=== PATIENT | male | born 1995 | race Caucasian/White ===

== ENCOUNTER 2017-09-14 20:34 | Inpatient (IN) | payer BC, OTHER ==
[~2017-09-14] VITALS: Ht 170.2 cm; Wt 73.0 kg
[2017-09-14 23:15] VITALS: BP 119/60
[2017-09-14] MEDS ORDERED: ONDANSETRON 4 MG/2 ML VIAL IM PRN (23:15)
[2017-09-14] MEDS ORDERED: LOPERAMIDE HCL 2 MG CAPSULE PO PRN ×2 (23:15)
[2017-09-14] MEDS ORDERED: diphenhydrAMINE 50 MG CAPSULE PO PRN (23:15)
[2017-09-14] MEDS ORDERED: MAG HYDROX/AL HYDROX/SIMETH 30 ML LIQUID UDC PO PRN (23:15)
[2017-09-14] MEDS ORDERED: LORAZEPAM 2 MG/1 ML VIAL IM PRN (23:15)
[2017-09-14] MEDS ORDERED: MIRALAX 17 GM POWD.PACK PO PRN (23:15)
[2017-09-14] MEDS ORDERED: IBUPROFEN 600 MG TABLET PO PRN (23:15)
[2017-09-14] MEDS ORDERED: CLONIDINE HCL 0.1 MG TABLET PO PRN (23:15)
[2017-09-14] MEDS ORDERED: ACETAMINOPHEN 325 MG TABLET PO PRN (23:15)
[2017-09-14] MEDS ORDERED: DICYCLOMINE HCL 20 MG TABLET PO PRN (23:15)
[2017-09-14] MEDS ORDERED: LORAZEPAM 1 MG TABLET PO PRN ×2 (23:15)
--- NOTE | 2017-09-14 23:15 | NUR ---
Pre-Admission Pre-admission assessment performed in the intake department of [facility]. Pt is A&O x4 and ambulatory with a steady gait. He does not appear intoxicated and answers all questions appropriately. Vital signs are B/P 119/60, HR 87, RR 18, O2 sat 97%, T 98.0, pain 0/10. He reports that he has been smoking heroin and taking Xanax. Last used heroin this morning at 0400. Last took Xanax 2 days ago. Pt is stable and [facility].
[2017-09-15] MEDS ORDERED: LORAZEPAM 1 MG TABLET PO ONE ×2 (01:15→15:15)
--- NOTE | 2017-09-15 01:15 | NUR ---
ADMISSION Pt is a 22 yo male who arrived on the [facility] unit at 2338 on 09/14/17 for medically supervised detox. He is A&O x4 and ambulatory with a steady gait. Body check performed by CERTIFIED PERSONAL FINANCE COUNSELOR and skin check performed by nurse. Pt was oriented to the unit and shown to his room. He reports NKA, chooses to be full code status, and is on a regular diet. Vitals in intake were Pt is 5'7" and weighs 161lb. B/P 119/60, HR 87, RR 18, O2 sat 97%, T 98.0, pain 0/10. He reports PMH of seizure disorder since age 8. Pt states "sometimes I have one seizure per year and sometimes I have 7 seizures per year. Last seizure was 2 weeks ago and he was taken to [facility] in [place]. He takes Gabapentin or Depakote for seizures. He also reports social anxiety and he wears contact lenses. Lung sounds clear, PERRLA, brisk capillary refill, bowel sounds present, skin is warm and intact. Last BM was 09/14/17. History of Use 1) Heroin oral inhalation 1.5 grams per day for 1.5 months. Last used 1 gram 09/14/17 at 0400. He has used heroin for 5 years. 2) Xanax 6mg per day for the past 3 weeks. Last used 2mg 09/12/17. He has used Xanax for 2 years. Treatment History [facility] 06/2017 [facility] 05/2017 for 30 days [facility] in 2014 for 30 days Pt smokes 10 cigarettes per day. He decided to come to treatment today because "I can't get sober". His longest period of sobriety was 2 months from 05/21-07/22. He currently lives at home with his girlfriend. Symptoms when he doesn't use include "nausea, anxiety, diarrhea, restlessness, loss of appetite, light headed, vomiting". His primary care physician is Apoorva Manuel in [facility]. COWS 6 and CIWA 5 on admission. MD aware of patients admission with orders received. Pt was educated regarding use of the call light and all questions answered. Fall and seizure precautions in place. Bed is down with call light in reach.
[2017-09-15 01:22] VITALS: BP 105/66
[2017-09-15] MEDS: ONDANSETRON ODT 4 MG TAB.RAPDIS SL PRN ×2 (01:26→04:52)
[2017-09-15] MEDS: METHOCARBAMOL 750 MG TABLET PO PRN ×2 (01:26→21:24)
--- NOTE | 2017-09-15 01:27 | NUR ---
Onetime Ativan, PRN Robaxin, and PRN Zofran Pt reports moderate anxiety, body aches, and nausea. COWS 7 and CIWA 8. Orders received and carried out for one time Ativan. PRN Robaxin and PRN Zofran administered.
[2017-09-15] MEDS ORDERED: ONDANSETRON ODT 4 MG TAB.RAPDIS ONE (01:28)
[2017-09-15] MEDS ORDERED: METHOCARBAMOL 750 MG TABLET ONE (01:28)
[2017-09-15] MEDS ORDERED: LORAZEPAM 1 MG TABLET ONE (01:28)
[2017-09-15 01:52] LABS: *AMPHETAMINE, URINE NEGATIVE (NEGATIVE); *BARBITURATE, URINE NEGATIVE (NEGATIVE); *CANNABINOID, URINE NEGATIVE (NEGATIVE); *COCCAINE, URINE POSITIVE (NEGATIVE); *OPIATE, URINE POSITIVE (NEGATIVE); *PHENCYCLIDINE SCREEN,URINE NEGATIVE (NEGATIVE)
--- NOTE | 2017-09-15 02:26 | NUR ---
Onetime Ativan, PRN Robaxin, and PRN Zofran reassessment Onetime Ativan somewhat effective. Pt reports continued mild anxiety. Body aches and nausea are relieved. COWS 3 and CIWA 3.
--- NOTE | 2017-09-15 02:29 | NUR ---
PRN Benadryl Pt reports continued mild anxiety and inability to sleep. PRN Benadryl administered.
[2017-09-15] MEDS ORDERED: diphenhydrAMINE 50 MG CAPSULE ONE (02:35)
--- NOTE | 2017-09-15 03:29 | NUR ---
PRN Benadryl reassessment PRN Benadryl effective. Pt is lying in bed resting with eyes closed. Respirations even and unlabored. Safety measures in place.
[2017-09-15 04:00] VITALS: BP 100/59
[2017-09-15] MEDS ORDERED: TRAZ-147 PO (04:35)
[2017-09-15] MEDS ORDERED: ONDA4TAB11 PO (04:35)
[2017-09-15] MEDS ORDERED: HYDR-3026 PO (04:35)
[2017-09-15] MEDS ORDERED: DIVA500T54 PO (04:35)
--- NOTE | 2017-09-15 07:20 | NUR ---
END OF SHIFT Report provided to day shift nurse. Pt is lying in bed resting. He is a 22 yo male admitted [facility] on 09/14 at 2336 for opiate and BZD dependence. He is A&O and ambulatory. PMH of seizure DO and social anxiety. Subutex and Ativan tapers to start today. One time Ativan administered. PRN Robaxin, Zofran, and Benadryl also administered. Last COWS 3 and CIWA 3 after medications. He drank 796mL and slept for 4 hours. Fall and seizure precautions in place. Bed is down with call light in reach.
--- NOTE | 2017-09-15 07:30 | NUR ---
START OF SHIFT Pt is a 22 yr old male, A&Ox4. Pt was admitted on 09/14/17 for Opiate/Benzo dependence and is to start on 5 day Ativan and 5 day Subutex taper as ordered. Received report from night monitor nurse. Pt received Zofran PRN, Robaxin PRN, Benadryl PRN and Ativan 2mg x1 during the night monitor. Medication was effective. Pt slept for 4 hrs. Last COWS score was 3, CIWA score was 3 at 0226. Pt is full code regular diet and NKA. Pt has Hx of seizures. Pt is on fall and seizure precautions. Pt is currently in bed resting with respirations even and unlabored. No acute distress noted. Safety precautions observed. Call light is within reach. Will continue to monitor.
[2017-09-15 08:00] VITALS: BP 99/57
[2017-09-15] MEDS ORDERED: TUBERCULIN,PURIF.PROT.DERIV. 5 TU/0.1 ML TEST ID ONE (09:00)
[2017-09-15] MEDS: LORAZEPAM 1 MG TABLET PO SCH ×4 (09:56→21:23)
[2017-09-15] MEDS: BUPRENORPHINE HCL 2 MG TAB.SUBL SL SCH ×4 (09:56→21:26)
[2017-09-15 12:00] VITALS: BP 122/80
[2017-09-15] MEDS: GABAPENTIN 300 MG CAPSULE PO SCH ×2 (14:20→21:24)
[2017-09-15] MEDS ORDERED: BUPRENORPHINE HCL 2 MG TAB.SUBL SL ONE (15:15)
--- NOTE | 2017-09-15 15:18 | NUR ---
MEDICATION ADMINISTRATION Pt c/o s/s of w/d. COWS score was [address] Dubon was made aware with new order for Ativan 1mg PO x1 and Subutex 2mg SL x1 at this time. Medication was administered. Pt was encouraged to attend group. Will endorse to RN to continue to monitor.
[2017-09-15 17:49] VITALS: BP 125/79
--- NOTE | 2017-09-15 19:20 | NUR ---
Patient refused as needed motrin for pain. Handoff report to night nurse .
--- NOTE | 2017-09-15 19:55 | NUR ---
START OF SHIFT Received report from day shift nurse. Pt is lying in bed resting. He is a 22 yo male admitted to [facility] on 09/14 for opiate and BZD dependence. He is A&O and ambulatory. NKA, full code status, and on a regular diet. PMH of seizure disorder since age 8 and social anxiety. On admission he reported using heroin 1.5 grams per day and Xanax 6mg per day. 5 day Subutex and 5 day Ativan taper started today. Pt reports anxiety, muscle aches, chills, and is observed with mild tremors. Tapers due tonight. Fall and seizure precautions in place. Bed is down with call light in reach.
[2017-09-15 20:00] VITALS: BP 133/81
[2017-09-15] MEDS: TRAZODONE 100 MG TABLET PO SCH (21:23)
--- NOTE | 2017-09-15 21:25 | NUR ---
PRN Robaxin Pt reports generalized body aches. PRN Robaxin administered.
--- NOTE | 2017-09-15 22:25 | NUR ---
PRN Robaxin reassessment PRN Robaxin effective. Pt is lying in bed and reports muscle aches are relieved. Safety measures in place.
[2017-09-16] VITALS: BP 103/55
--- NOTE | 2017-09-16 | NUR ---
0000 COWS and CIWA deferred COWS and CIWA ordered Q4HWA. Pt is lying in bed resting with eyes closed. Respirations even and unlabored. Vital signs obtained. Safety measures in place.
[2017-09-16 04:00] VITALS: BP 102/57
--- NOTE | 2017-09-16 04:00 | NUR ---
0400 COWS and CIWA deferred COWS and CIWA ordered Q4HWA. Pt is lying in bed resting with eyes closed. Respirations even and unlabored. Vital signs obtained. Safety measures in place.
--- NOTE | 2017-09-16 07:25 | NUR ---
END OF SHIFT Report provided to day shift nurse. Pt is lying in bed resting. He is a 22 yo male admitted to [facility] on 09/14 for opiate and BZD dependence. He is A&O and ambulatory. NKA, full code, regular diet. PMH of seizure disorder since age 8 and social anxiety. On admission he reported using heroin 1.5 grams per day and Xanax 6mg per day. 5 day Subutex and 5 day Ativan taper started today. He is compliant with treatment. PRN Robaxin administered. Last COWS 6 and CIWA 6 before night meds. He drank 500mL and slept for 9 hours. Fall and seizure precautions in place. Bed is down with call light in reach.
--- NOTE | 2017-09-16 07:30 | NUR ---
START OF SHIFT Pt is a 22 yr old male, AA&Ox4. Pt was admitted on 09/14/17 for Opiate/Benzo dependence and is to start on 5 day Ativan and 5 day Subutex taper as ordered. Received report from night baker nurse. Pt received Robaxin PRN during the night baker. Medication was effective. Pt slept for 9 hrs. Last COWS score was 6, CIWA score was 6 at 1999. Pt is full code regular diet and NKA. Pt has Hx of seizures. Pt is on fall and seizure precautions. Pt is currently in bed resting with respirations even and unlabored. No acute distress noted. Safety precautions observed. Call light is within reach. Will continue to monitor.
[2017-09-16 08:00] VITALS: BP 96/59
[2017-09-16] MEDS: GABAPENTIN 300 MG CAPSULE PO SCH ×3 (09:15→20:17)
[2017-09-16] MEDS: LORAZEPAM 1 MG TABLET PO SCH ×3 (09:15→20:16)
[2017-09-16] MEDS: BUPRENORPHINE HCL 2 MG TAB.SUBL SL SCH ×3 (09:17→20:18)
--- NOTE | 2017-09-16 10:54 | NUR ---
Therapist prompted client about group times. Client stated he may go to groups today, depending on how he feels.
[2017-09-16 12:00] VITALS: BP 121/73
[2017-09-16] MEDS ORDERED: KETOROLAC TROMETHAMINE 30 MG INJ IM PRN (12:00)
[2017-09-16] MEDS ORDERED: BUPRENORPHINE HCL 2 MG TAB.SUBL SL ONE (12:00)
--- NOTE | 2017-09-16 12:27 | NUR ---
MEDICATION ADMINISTRATION Pt c/o s/s of w/d. COWS score was [address] Dubon was made aware with new order for Subutex 2mg SL x1 at this time. Medication was administered. Pt was encouraged to attend group. Pt became agitated and was requested for Ativan for anxiety. Clonidine 0.1mg PO PRN was offered but pt refused. Will f/u with .
[2017-09-16] MEDS ORDERED: HYDROXYZINE PAMOATE 25 MG CAPSULE PO PRN (12:45)
[2017-09-16] MEDS: LORAZEPAM 1 MG TABLET PO ONE ×2 (13:40→13:42)
--- NOTE | 2017-09-16 13:42 | NUR ---
NSG NOTES Pt c/o anxiety. Dr. Dubon was on the unit and place one time order for Ativan 2mg PO x1. Medication was administered and alvin well. Will continue to monitor.
[2017-09-16] MEDS: BACLOFEN 10 MG TABLET PO SCH ×2 (15:04→20:16)
[2017-09-16 16:00] VITALS: BP 118/73
--- NOTE | 2017-09-16 19:00 | NUR ---
END OF SHIFT Pt is a 22 yr old male, AA&Ox4. Pt was admitted on 09/14/17 for Opiate/Benzo dependence and is on 5 day Ativan and 5 day Subutex taper as ordered. Pt has been noted with agitation due to wanting extra dose of Ativan and Subutex. Pt has been spoken to by administration over behavior. Pt was able to verbalize understanding of disease process and plan of care. Pt received Ativan 2mg PO x1 and Subutex 2mg SL x1 during the day. Medication was effective. Last COWS score was 3, CIWA score was 3 at 1600. Pt was encouraged to attend group. Pt is full code regular diet and NKA. Pt has Hx of seizures d/t w/d. Pt is on fall and seizure precautions. Pt is currently in bed resting with respirations even and unlabored. No acute distress noted. Safety precautions observed. Call light is within reach.
--- NOTE | 2017-09-16 19:50 | NUR ---
START OF SHIFT Received report from day shift nurse. Pt is lying in bed resting. He is a 22 yo male admitted to the [facility] on 09/14 for opiate and BZD dependence. He is A&O and ambulatory. NKA, full code status, and on a regular diet. PMH of seizure disorder since age 8 and social anxiety. On admission he reported using heroin 1.5 grams per day and Xanax 6mg per day. 5 day Subutex and 5 day Ativan taper started today. Pt reports anxiety, generalized body aches /, and has mild hand tremors. Tapers due tonight. Fall and seizure precautions in place. Bed is down with call light in reach.
[2017-09-16 20:00] VITALS: BP 124/83
[2017-09-16] MEDS: CLONIDINE HCL 0.1 MG TABLET PO SCH (20:17)
[2017-09-17] VITALS: BP 107/57
[2017-09-17] MEDS: TRAZODONE 100 MG TABLET PO SCH ×3 (00:16→20:34)
--- NOTE | 2017-09-17 04:00 | NUR ---
0400 Vitals refused/COWS and CIWA deferred Pt refused to be woken for 0400 vitals. He is lying in bed resting with eyes closed. Respirations even and unlabored. COWS and CIWA ordered Q4HWA. Safety measures in place.
--- NOTE | 2017-09-17 07:15 | NUR ---
END OF SHIFT Report provided to day shift nurse. Pt is lying in bed resting. He is a 22 yo male admitted to [facility] on 09/14 for opiate and BZD dependence. He is A&O and ambulatory. NKA, full code status, and on a regular diet. PMH of seizure disorder since age 8 and social anxiety. On admission he reported using heroin 1.5 grams per day and Xanax 6mg per day. 5 day Subutex and 5 day Ativan tapers started 09/15. No PRN medications administered. Last COWS 3 and CIWA 3. He drank 500mL and slept for 8 hours. Tapers due tonight. Fall and seizure precautions in place. Bed is down with call light in reach.
--- NOTE | 2017-09-17 07:30 | NUR ---
START OF SHIFT Pt is a 22 yr old male, AA&Ox4. Pt was admitted on 09/14/17 for Opiate/Benzo dependence and is to start on 5 day Ativan and 5 day Subutex taper as ordered. Received report from night order selector nurse. No PRN's were given during the night. Pt slept for 8 hrs. Last COWS score was 3, CIWA score was 3 at 0000. Pt is full code regular diet and NKA. Pt is on fall and seizure precautions. Pt is currently in bed resting with respirations even and unlabored. Pt is refusing to have blood drawn for lab orders. Pt was encouraged and educated in the importance of labs, pt stated for door to door salesman to come back in the afternoon while awake. Will continue to f/u. Safety precautions observed. Call light is within reach. Will continue to monitor.
[2017-09-17 08:00] VITALS: BP 98/62
[2017-09-17] MEDS: CLONIDINE HCL 0.1 MG TABLET PO SCH ×3 (09:00→20:27)
[2017-09-17] MEDS ORDERED: BUPRENORPHINE HCL 2 MG TAB.SUBL SL SCH ×2 (09:00→15:00)
[2017-09-17] MEDS ORDERED: LORAZEPAM 1 MG TABLET PO SCH ×3 (09:00→21:00)
[2017-09-17] MEDS: GABAPENTIN 300 MG CAPSULE PO SCH ×3 (09:55→20:28)
[2017-09-17] MEDS: BACLOFEN 10 MG TABLET PO SCH (09:55)
--- NOTE | 2017-09-17 09:58 | NUR ---
MEDICATION REFUSED Pt refused to take Clonidine 0.1mg PO as scheduled at 0900. Pt was educated on medication regimen. Pt is able to verbalize understanding but continued to refuse.
--- NOTE | 2017-09-17 10:30 | NUR ---
MD COMMUNICATION Reported to Dr. Dubon in regards to pt refusing morning labs. Per , NNO at this time.
--- NOTE | 2017-09-17 11:22 | NUR ---
PRN GIVEN Pt is c/o generalized body aches 06/14 and increase anxiety. Toradol 30mg IM PRN and Clonidine 0.1mg PO PRN was given as ordered. Pt was encouraged to attend group sessions and was educated on coping mechanisms for anxiety. Encouraged increase fluid intake. Will continue to monitor.
[2017-09-17 12:00] VITALS: BP 127/79
[2017-09-17] MEDS ORDERED: HYDROXYZINE PAMOATE 25 MG CAPSULE PO PRN (12:15)
--- NOTE | 2017-09-17 12:22 | NUR ---
PRN RE-ASSESSMENT Toradol PRN and Clonidine PRN was effective. Pt denies any pain at this time. Encouraged increase fluid intake. Will continue to monitor.
[2017-09-17] MEDS: BUPRENORPHINE HCL 2 MG TAB.SUBL SL SCH ×3 (13:08→20:28)
[2017-09-17] MEDS ORDERED: GABAPENTIN 300 MG CAPSULE PO ONE (14:15)
[2017-09-17] MEDS: ONDANSETRON ODT 4 MG TAB.RAPDIS SL PRN (14:47)
--- NOTE | 2017-09-17 14:47 | NUR ---
PRN GIVEN Pt c/o x2 emesis. Zofran 4mg SL PRN was given as ordered. Medication alvin well. Will continue to monitor.
[2017-09-17] MEDS: BACLOFEN 20 MG TABLET PO SCH ×2 (14:48→20:27)
--- NOTE | 2017-09-17 15:47 | NUR ---
PRN RE-ASSESSMENT Zofran PRN was effective. Pt denies any n/v. Encouraged increase fluid intake. Will continue to monitor.
[2017-09-17 16:00] VITALS: BP 119/81
--- NOTE | 2017-09-17 19:10 | NUR ---
END OF SHIFT Pt is a 22 yr old male, AA&Ox4. Pt was admitted on 09/14/17 for Opiate/Benzo dependence and is on 5 day Ativan and 5 day Subutex taper as ordered. Pt has been encouraged to attend group. Pt refused to attend group. Pt needs further education on disease process and medication regimen. Pt received Toradol PRN, Clonidine PRN, and Zofran PRN for s/s of w/d. Medication was effective. Last COWS score was 3 and CIWA score was 3 at 1600. Pt is full code regular diet and NKA. Pt is on fall and seizure precautions. Safety precautions observed. Call light is within reach.
[2017-09-17 20:00] VITALS: BP 116/69
--- NOTE | 2017-09-17 20:00 | NUR ---
1999 Patient received awake, alert and up to nurse's station, making various comments about nursing staff, floor protocols, and making inquiries about medications, his and other patient's. Patient politely but firmly redirected to his room # 308 for nurse assess and vital signs. Patient responds to nurse's greeting and introduction with eye contact and, " Hi" and then he began to verbalize his feelings about several facets of [facility] floor and various personnel. Patient allowed to ventilate his feelings and then calm reassurances and simple explanations given to him as needed, within nursing scope. Patient had to be frequently redirected not to use profanities while speaking to nurse. Patient is oriented to person, place, day, date, time and his personal situation. Patient's color is pink and his skin is clean, warm, dry and intact. Patient denies any pain or other specific discomforts presently. Patient states that he is eating his regular diet meal trays "okay" and taking various fluids ad yaima with no gastric issues so far. Vital signs are: 98.2-86-16 116/69, O2 Sat 99%, COWS 4, CIWA 4. Patient states, " I'm going to go have a smoke". " I don't want to be woke tonight okay?" Bed is locked and in lowest position, bed rails are up X 2, fall/seizure precautions continue, call light on bed.
--- NOTE | 2017-09-18 | NUR ---
Patient requested not to be awakened at this time for V/S, COWS, CIWA to be done. These assessments deferred.
--- NOTE | 2017-09-18 04:00 | NUR ---
Patient sleeping soundly with respirations quiet, even, unlabored at 12. Patient requested at 1999, not to be awakened for V/S, COWS, CIWA to be done at this time. These assessments deferred.
--- NOTE | 2017-09-18 06:30 | NUR ---
0630 Patient slept a total of 8 hours and he had 2 voids and no stools. Total intake was 1,100 ml p.o. No prn medications given this shift. V/SS afebrile, last COWS 4, last CIWA 4 at 1999. Patient is presently sleeping comfortably in stable condition with eyes closed and respirations even, unlabored at 12.
--- NOTE | 2017-09-18 07:25 | NUR ---
Start of Shift Notes: Received report from night nurse. Patient is in his room. Alert and verbally responsive. Oriented x 4. Able to make his/her needs known. Respirations even and unlabored. No SOB noted. Skin warm and moist to touch. Abdomen soft and non-distended. BS (+) in all 4 quadrants. No complains of N/V/D or constipation noted. Bladder non-distended. No complains of dysuria noted. Ambulatory ad yaima with steady gait. Patient is a 22 year old male admitted for opiate and BZO dependence who was placed on a 5-day Ativan and 5-day Subutex taper as ordered. No adverse reactions noted. Prior to admission, patient was using 1.5 grams of Heroin x 1.5 months and 6 mg of Xanax x 3 weeks. Has past medical hx of seizure disorder, and social anxiety. NKA. FULL CODE. Regular diet. On fall and seizure precautions. Educated patient on the current plan of care for the day and the medication regimen. Encouraged oral fluid intake and encouraged group participation to learn new skills to prevent relapse. Will continue to monitor closely throughout the day.
[2017-09-18 08:00] VITALS: BP 100/51
[2017-09-18] MEDS: BUPRENORPHINE HCL 2 MG TAB.SUBL SL SCH ×3 (09:24→20:37)
[2017-09-18] MEDS: BACLOFEN 20 MG TABLET PO SCH ×3 (09:24→20:35)
[2017-09-18] MEDS: GABAPENTIN 300 MG CAPSULE PO SCH ×4 (09:24→20:35)
[2017-09-18] MEDS: LORAZEPAM 1 MG TABLET PO SCH ×2 (09:25→20:36)
[2017-09-18] MEDS: CLONIDINE HCL 0.1 MG TABLET PO SCH ×3 (09:25→20:36)
--- NOTE | 2017-09-18 09:35 | NUR ---
0900 Meds: 0900 meds given as ordered. Oral check done for cheeking. No evidence of cheeking noted. ANESTHESIOLOGY TECH with nurse while meds were being given.
[2017-09-18 12:00] VITALS: BP 126/77
--- NOTE | 2017-09-18 14:20 | NUR ---
Clonidine 0.1mg PO not administered: Patient refused Clonidine. Patient states "I don't want Clonidine, it makes me too tired and I am already tired." Risk and benefits explained but patient still refused. Due Baclofen and Subutex 2 mg SL given with PHYSICAL AERODYNAMICIST to witness. Oral check done. No evidence of cheeking noted.
[2017-09-18 16:00] VITALS: BP 134/83
--- NOTE | 2017-09-18 16:00 | NUR ---
Client was prompted to attend groups today. Client stated he would attend all groups.
--- NOTE | 2017-09-18 18:58 | NUR ---
End of Shift Note: Patient continues to be on 5-day Ativan and 5-day Subutex taper as ordered. No adverse reactions noted. Patient is tolerating taper well. VS monitored closely. No significant abnormalities noted. Withdrawal symptoms were closely monitored. Initial COWS 6/CIWA 6 - patient presented with anxiety, agitation, mild tremors, mild sweating, chills, hot flashes, restlessness .Per patient, Ativan and Subutex has been effective in reducing his withdrawal symptoms. During the day, patient noted with behavioral issues such as requesting for more medications and attempting to manipulate staff and other clients to give him more medication despite educating patient on the risk involved on his behavior. Last COWS 4/CIWA 3. All needs met and attended. Encouraged patient to self soothe and to participate in group for redirection. Will continue to monitor closely.
--- NOTE | 2017-09-18 19:38 | NUR ---
Start of shift note Patient is a 22 year old male admitted to [facility] on 09/14/17 for Benzo and Opiate detox. Patient is a full code on a regular diet with NKA. He is on fall and seizure precaution. He is on a five day Ativan and 5 day Subutex taper. Last COWS 4 CIWA 3 at 1600. Patient with PMH of seizure disorder since age 8, and social anxiety. Safety measures in place. Bed locked and in lowest position, 2 padded side rails up for safety. Call light within reach. Report received from AM nurse.
[2017-09-18 20:00] VITALS: BP 120/75
[2017-09-18] MEDS: TRAZODONE 100 MG TABLET PO SCH (21:00)
--- NOTE | 2017-09-18 22:00 | NUR ---
Refusal of medication Patient refused Trazodone 100 mg PO ordered for 2100. States he does not need it to sleep.
--- NOTE | 2017-09-19 | NUR ---
0000 Vitals refused/COWS/CIWA deferred Pt refused to be woken for 0000 vitals. He is lying in bed resting with eyes closed. Respirations even and unlabored. COWS/CIWA ordered Q4HWA. Safety measures in place.
--- NOTE | 2017-09-19 04:00 | NUR ---
0400 Vitals refused/COWS/CIWA deferred Pt refused to be woken for 0400 vitals. Respirations even and unlabored. COWS/CIWA ordered Q4HWA. Patient asleep. Safety measures in place.
--- NOTE | 2017-09-19 06:48 | NUR ---
End of Shift Patient is a 22 year old male admitted to [facility] on 09/14/17 for Benzo and Opiate detox. Patient is a full code on a regular diet with NKA. He is on fall and seizure precaution. He is on a five day Ativan and 5 day Subutex taper. Patient with PMH of seizure disorder since age 8, and social anxiety. VS at 1999 BP 120/75, P 86, R 18, SPO2 98% on RA, T 98.0. COWS 4 CIWA 3. Refused 2100 Trazodone. Slept a total of 7 hours. Intake 1355 ml Output 2 voids 1 BM[address] measures in [address]. Bed locked and in lowest position, 2 padded side rails up for safety. Call light within reach. Report given to AM nurse.
--- NOTE | 2017-09-19 07:20 | NUR ---
start of Shift Endorsement received from nightshift nurse. Pt is a 22 y/o male admitted for Heroin and Xanax dependence. Pt has been placed on a 5 day Ativan and 5 day Subutex taper. Pt is tolerating the detox process and mildly withdrawing AEB COWS 4, CIWA 3 at 1999. PT did not receive any PRN medications. Pt reports sleeping 7 hours. VS WNL. Full Code. PT is alert and oriented x4. Pt is in STABLE condition at this time. Remains compliant with medication and diet regimen. All needs have been met, All safety measures in place per hospital policy. Bed in lowest position, side rails up x2, call-light within reach. Will continue to monitor
[2017-09-19 08:00] VITALS: BP 94/52
[2017-09-19] MEDS ORDERED: LORAZEPAM 1 MG TABLET PO SCH (09:00)
[2017-09-19] MEDS ORDERED: BUPRENORPHINE HCL 2 MG TAB.SUBL SL SCH (09:00)
[2017-09-19] MEDS: BACLOFEN 20 MG TABLET PO SCH ×3 (09:20→20:08)
[2017-09-19] MEDS: CLONIDINE HCL 0.1 MG TABLET PO SCH ×4 (09:20→20:08)
[2017-09-19] MEDS: GABAPENTIN 300 MG CAPSULE PO SCH ×4 (09:20→20:08)
[2017-09-19 12:00] VITALS: BP 130/82
--- NOTE | 2017-09-19 14:42 | NUR ---
Therapist prompted client to attend group today. Client agreed to to attend.
[2017-09-19 16:00] VITALS: BP 124/61
--- NOTE | 2017-09-19 18:52 | NUR ---
End of Shift Endorsement given to nightshift nurse. Pt is a 22 y/o male admitted for Heroin and Xanax dependence. Pt has been placed on a 5 day Ativan and 5 day Subutex taper. Pt is tolerating the detox process and mildly withdrawing AEB COWS 2, CIWA 2 at 1600. PT did not receive any PRN medications. Pt participated in groups and activities. Educated pt on diet and medication regimen. Pt refused scheduled Clonidine, stating, "I don't need it". VS WNL. Full Code. PT is alert and oriented x4. Pt is in STABLE condition at this time. Remains compliant with medication and diet regimen. All needs have been met, All safety measures in place per hospital policy. Bed in lowest position, side rails up x2, call-light within reach. Will continue to monitor
--- NOTE | 2017-09-19 19:21 | NUR ---
Start of shift note Patient is a 22 year old male admitted to [facility] on 09/14/17 for Benzo and Opiate detox. Patient is a full code on a regular diet with NKA. He is on fall and seizure precaution. He has completed a five day Ativan and 5 day Subutex taper. Last COWS 2 CIWA 2 at 1600. Patient with PMH of seizure disorder since age 8, and social anxiety. Safety measures in place. Bed locked and in lowest position, 2 padded side rails up for safety. Call light within reach. Report received from AM nurse.
[2017-09-19 20:00] VITALS: BP 127/85
[2017-09-19] MEDS ORDERED: DICY20TA28 PO (20:04)
[2017-09-19] MEDS ORDERED: HYDR-3895 PO (20:04)
[2017-09-19] MEDS ORDERED: BACL20TA PO (20:04)
[2017-09-19] MEDS ORDERED: DIPH50CA37 PO (20:04)
[2017-09-19] MEDS ORDERED: IBUP-1955 PO (20:04)
[2017-09-19] MEDS ORDERED: CLON0.1T14 PO (20:04)
[2017-09-19] MEDS ORDERED: GABA-534 PO (20:04)
[2017-09-19] MEDS: TRAZODONE 100 MG TABLET PO SCH (20:08)
--- NOTE | 2017-09-20 | NUR ---
patient refused vital signs/COWS/CIWA deferred Pt refused to be woken for 0000 vitals. He is lying in bed resting with eyes closed. Respirations even and unlabored. COWS/CIWA ordered Q4HWA. Safety measures in place.
--- NOTE | 2017-09-20 04:00 | NUR ---
patient refused vital signs/COWS/CIWA deferred Pt refused to be woken for 0400 vitals. He is lying in bed resting with eyes closed. Respirations even and unlabored. COWS/CIWA deferred for sleep.Safety measures in place.
--- NOTE | 2017-09-20 06:45 | NUR ---
End of Shift Patient is a 22 year old male admitted to [facility] on 09/14/17 for Benzo and Opiate detox. Patient is a full code on a regular diet with NKA. He is on fall and seizure precaution. He has completed a 5 day Ativan and 5 day Subutex taper. Patient with PMH of seizure disorder since age 8, and social anxiety. VS at 1999 BP 127/85, P 82, R 14, SPO2 99% on RA, T 98.1 COWS 3 CIWA 2. Slept a total of 7 hours. Intake 1210 ml., Output 2 voids and 1 BM. Safety measures in place. Bed locked and in lowest position, 2 padded side rails up for safety. Call light within reach. Report given to AM nurse.
--- NOTE | 2017-09-20 07:15 | NUR ---
Start of Shift Notes: Received report from night nurse. Patient is in his room. Alert and verbally responsive. Oriented x 4. Able to make his/her needs known. Respirations even and unlabored. No SOB noted. Skin warm and moist to touch. Abdomen soft and non-distended. BS (+) in all 4 quadrants. No complains of N/V/D or constipation noted. Bladder non-distended. No complains of dysuria noted. Ambulatory ad yaima with steady gait. Patient is a 22 year old male admitted for opiate and BZO dependence who was placed on a 5-day Ativan and 5-day Subutex taper as ordered. No adverse reactions noted. Prior to admission, patient was using 1.5 grams of Heroin x 1.5 months and 6 mg of Xanax x 3 weeks. Has past medical hx of seizure disorder, and social anxiety. NKA. FULL CODE. Regular diet. On fall and seizure precautions. Patient will be discharging today. Educated patient on the current plan of care for the day and the medication regimen. Patient verbalized good understanding. .
[2017-09-20 08:00] VITALS: BP 101/71
[2017-09-20 08:23] VITALS: BP 101/71
[2017-09-20] MEDS: GABAPENTIN 300 MG CAPSULE PO SCH (08:23)
[2017-09-20] MEDS: BACLOFEN 20 MG TABLET PO SCH (08:23)
[2017-09-20] MEDS: CLONIDINE HCL 0.1 MG TABLET PO SCH (08:23)
--- NOTE | 2017-09-20 09:20 | NUR ---
DISCHARGE: PT IS A/O X4. HE DENIES S/I AND H/I. HE STATES HE IS MOTIVATED TO STAY CLEAN AND FEELS ENTHUSIASTIC. BELONGINGS RETURNED. EDUCATED PT ON DISCHARGE INSTRUCTIONS AND MEDICATIONS. WASH OPERATOR ESCORTED PT TO LOBBY WHERE HE WAS TRANSPORTED BY [facility].
== END 2017-09-20 09:20 | disposition other institution (70) | DRG 895 ==
LOC: SRC 22:45
PROVIDERS: ADMIT Internal Medicine; ATTEND Internal Medicine
PROC: HZ2ZZZZ Detoxification Services for Substance Abuse Treatment (ICD-10-PCS; principal; 2017-09-14)
PROC: HZ31ZZZ Individual Counseling for Substance Abuse Treatment, Behavioral (ICD-10-PCS; 2017-09-16)
PROC: HZ41ZZZ Group Counseling for Substance Abuse Treatment, Behavioral (ICD-10-PCS; 2017-09-16)
DX: F11.23 Opioid dependence with withdrawal (principal); G40.919 Epilepsy, unspecified, intractable, without status epilepticus; F14.10 Cocaine abuse, uncomplicated; F13.230 Sedative, hypnotic or anxiolytic dependence with withdrawal, uncomplicated; F15.10 Other stimulant abuse, uncomplicated; F17.210 Nicotine dependence, cigarettes, uncomplicated; Z79.899 Other long term (current) drug therapy; Z91.89 Other specified personal risk factors, not elsewhere classified; F41.9 Anxiety disorder, unspecified; F39 Unspecified mood [affective] disorder; G47.00 Insomnia, unspecified
CPT/HCPCS: 70030-TC; 80307; 80346; 80353; 80361; 86580; A4663; J1885; Q0162; Q0163

== ENCOUNTER 2017-10-25 14:09 | Inpatient (IN) | payer BC, OTHER ==
[~2017-10-25] VITALS: Ht 170.2 cm; Wt 77.1 kg
[~2017-10-25 14:09] MED LIST: BACL20TA PO; CLON0.1T14 PO; DICY20TA28 PO; DIPH50CA37 PO; DIVA500T54 PO; GABA-534 PO; HYDR-3026 PO; HYDR-3895 PO; IBUP-1955 PO; ONDA4TAB11 PO; TRAZ-147 PO
--- NOTE | 2017-10-25 19:15 | NUR ---
PRE-ADMISSION NOTE: Patient assessed in intake office at 1915 on 10/25/2017. Patient is ambulatory with steady gate, stable, AOx4, speech is clear. Patient states that he is here, in the [facility] "second time for Safety Detox from Benzodiazepines and Opioid". Patient states that he" last used Xanax (Alprazolam) 4 mg PO and Heroin smoke 1 gram on 10/25/2017 @0800". Patient's COWS 9,CIWA 7. The patient reported the following symptoms of withdrawal: anxiety, agitation, nervousness, tremors, body aches, diaphoresis, abdominal cramps, headache, restless legs, insomnia and fatigue. Patient denies SI/HI. Breathing is even and unlabored. Patient denies SOB and chest pain. Last BM was "10/25/2017". VS: T: 97.9; BP: 134/69; HR: 91; RR: 18; O2 SAT: 98%. Patient reports generalized body aches pain now: "07/15". Patient reports Allergy to Naloxone. Patient placed on Full Code, Regular Diet, Fall and Seizures Precautions. Patient instructed on unit protocol of vitals Q4H and COWS/CIWA assessments. Patient verbalized understanding and agreement. Patient also instructed on policy regarding destruction of any controlled substances/prescriptions brought to facility, and handling of all medications. Patient verbalized understanding and agreement. Will complete admission assessment when patient is brought up to unit.
[2017-10-25 19:20] VITALS: BP 134/69
--- NOTE | 2017-10-25 19:20 | NUR ---
ADMISSION NOTE New patient is a 22 year old male admitted to [facility] on 10/25/2017 @1920 for medically supervised withdrawal from Benzodiazepines and Opioid. Patient reports Allergy to Naloxone. Patient placed on Full Code, Regular Diet, Fall and Seizures Precautions. Patient reports Seizures History. Patient reports "no PCP". Pre-assessment completed in intake. Patient provided UDS test at this time. Patient is ambulatory with steady gate, stable, A&Ox4, speech is clear. VS upon admission: T: 97.9; BP: 134/69; HR: 91; RR: 18; O2 SAT: 98%. Patient reports generalized body aches pain now: "07/15". Ht: 67 in; Wt: 170 lb. COWS 9, CIWA 7. The patient presented with: anxiety, agitation, nervousness, tremors, sweating, headache, restless legs, insomnia and fatigue. Patient denies SI/HI. Patient is cooperative and verbally appropriate. Patient reports the following substances use: 1."Xanax (Alprazolam) PO 12 mg every day during last month. Last dose taken on 10/25/2017@0800". 2."Heroin smoking 4 grams every day during last month. Last dose taken on 10/25/2017@0800". Patient reports "smoking 20 cigarettes every day since 2002". Written smoking cessation education provided. Patient verbalized understanding. Patient reports was [facility] MRSA from nares collected and sent to lab as ordered. Patient tolerated well. Patient reports that longest period of sobriety was from 2017 for one month - 09/2017". Patient denies a history of suicidal ideations. Patient denies current SI/HI. Past Medical History: Anxiety, Depression, History of Seizures ("07/2017"). Reconciliation of Home Medications done. Upon initial assessment, patient's Respirations unlabored and even. Patient denies SOB and chest pain. Lungs Sounds are clear bilaterally. Bowel Sounds active in all x4 quadrants. Abdomen is soft and non-tender. PERRLA, brisk capillary refill, seal delivery vehicle team technician equal and strong. Skin is intact, warm and dry to touch. Patient [facility] to his room, [facility] Call Light[facility]. Encourage fluids as tolerated. Encourage to attend activities groups. All needs met. Safety measures on place. Call light within reach, bed in lowest position and locked, padded rails up bilaterally rails up bilaterally. Patient admitted under the care doctor Alfonso Dubon MD. Doctor Alfonso Dubon MD aware for patient condition. Will continue to monitor closely.
--- NOTE | 2017-10-25 19:20 | NUR ---
ADMISSION NOTE New patient is a 22 year old male admitted to [facility] on 10/25/2017 @1920 for medically supervised withdrawal from Benzodiazepines and Opioid. Patient reports Allergy to Naloxone. Patient placed on Full Code, Regular Diet, Fall and Seizures Precautions. Patient reports Seizures History. Patient reports "no PCP" . Pre-assessment completed in intake. Patient provided UDS test at this time. Patient is ambulatory with steady gate, stable, A&Ox4, speech is clear. VS upon admission: T: 97.9; BP: 134/69; HR: 91; RR: 18; O2 SAT: 98%. Patient reports generalized body aches pain now: "07/15". Ht: 67 in; Wt: 170 lb. COWS 9, CIWA 7. The patient presented with: anxiety, agitation, nervousness, tremors, sweating, headache, restless legs, insomnia and fatigue. Patient denies SI/HI. Patient is cooperative and verbally appropriate. Patient reports the following substances use: 1."Xanax (Alprazolam) PO 12 mg every day during last month. Last dose taken on 10/25/2017@0800". 2."Heroin smoking 4 grams every day during last month. Last dose taken on 10/25/2017@0800". Patient reports "smoking 20 cigarettes every day since 2002". Written smoking cessation education provided. Patient verbalized understanding. Patient reports was recently [facility] MRSA from nares collected and sent to lab as ordered. Patient tolerated well. Patient reports that longest period of sobriety was from 2017 for one month - 09/2017". Patient denies a history of suicidal ideations. Patient denies current SI/HI. Past Medical History: Anxiety, Depression, History of Seizures ("07/2017"). Reconciliation of Home Medications done. Upon initial assessment, patient's Respirations unlabored and even. Patient denies SOB and chest pain. Lungs Sounds are clear bilaterally. Bowel Sounds active in all x4 quadrants. Abdomen is soft and non-tender. PERRLA, brisk capillary refill, import/export agent equal and strong. Skin is intact, warm and dry to touch. Patient oriented to his room, Nurse Call Light[facility]. Encourage fluids as tolerated. Encourage to attend activities groups. All needs met. Safety measures on place. Call light within reach, bed in lowest position and locked, padded rails up bilaterally rails up bilaterally. Patient admitted under the care doctor Alfonso Dubon MD. Doctor Alfonso Dubon MD aware for patient condition. Will continue to monitor closely.
[2017-10-25 20:00] VITALS: BP 127/68
[2017-10-25] MEDS ORDERED: MIRALAX 17 GM POWD.PACK PO PRN (20:00)
[2017-10-25] MEDS ORDERED: ACETAMINOPHEN 325 MG TABLET PO PRN (20:00)
[2017-10-25] MEDS ORDERED: LORAZEPAM 1 MG TABLET PO PRN ×2 (20:00)
[2017-10-25] MEDS ORDERED: LOPERAMIDE HCL 2 MG CAPSULE PO PRN ×2 (20:00)
[2017-10-25] MEDS ORDERED: LORAZEPAM 1 MG TABLET PO SCH (20:00)
[2017-10-25] MEDS ORDERED: LORAZEPAM 2 MG/1 ML VIAL IM PRN (20:00)
[2017-10-25] MEDS ORDERED: BUPRENORPHINE HCL 2 MG TAB.SUBL SL PRN (20:00)
[2017-10-25] MEDS ORDERED: ONDANSETRON ODT 4 MG TAB.RAPDIS SL PRN (20:00)
[2017-10-25] MEDS ORDERED: DOCUSATE SODIUM 250 MG CAPSULE PO PRN (20:00)
[2017-10-25] MEDS ORDERED: MAG HYDROX/AL HYDROX/SIMETH 30 ML LIQUID UDC PO PRN (20:00)
[2017-10-25] MEDS ORDERED: ONDANSETRON 4 MG/2 ML VIAL IM PRN (20:00)
[2017-10-25] MEDS ORDERED: DICYCLOMINE HCL 20 MG TABLET PO PRN (20:00)
[2017-10-25] MEDS ORDERED: MAGNESIUM HYDROXIDE 30 ML LIQUID UDC PO PRN (20:00)
[2017-10-25] MEDS ORDERED: IBUPROFEN 600 MG TABLET PO PRN (20:00)
[2017-10-25] MEDS ORDERED: BUPRENORPHINE HCL 2 MG TAB.SUBL SL SCH (20:00)
[2017-10-25] MEDS ORDERED: diphenhydrAMINE 50 MG CAPSULE PO PRN (20:00)
[2017-10-25 20:09] LABS: *AMPHETAMINE, URINE NEGATIVE (NEGATIVE); *BARBITURATE, URINE POSITIVE (NEGATIVE); *CANNABINOID, URINE NEGATIVE (NEGATIVE); *COCCAINE, URINE NEGATIVE (NEGATIVE); *PHENCYCLIDINE SCREEN,URINE NEGATIVE (NEGATIVE)
[2017-10-25 20:18] LABS: *OPIATE, URINE POSITIVE (NEGATIVE)
--- NOTE | 2017-10-25 20:51 | NUR ---
PRN BENADRYL 50 MG 1 CAP PO ADMINISTRATION Patient c/o insomnia and asked aid. PRN Benadryl 50 mg 1 capsule PO for insomnia with full glass of water administrated as ordered. Patient tolerated well. All needs met. Safety measures on place. Call light within reach, bed in lowest position and locked, padded rails up bilaterally rails up bilaterally. Will continue to monitor closely.
[2017-10-25] MEDS: GABAPENTIN 300 MG CAPSULE PO SCH (20:54)
[2017-10-25] MEDS: DOCOSANOL 2 GM CREAM TP PRN (21:17)
--- NOTE | 2017-10-25 21:17 | NUR ---
PRN Abreva: Patient c/o active herpes lesion on lip. Administered PRN Abreva as ordered. Will endorse administration and reassessment to primary nurse
--- NOTE | 2017-10-25 21:51 | NUR ---
RE-ASSESSMENT Patient is sleeping. Respirations even and unlabored. RR 14. PRN Benadryl 50 mg 1 capsule PO for insomnia was effective. All needs met. Safety measures on place. Call light within reach, bed in lowest position and locked, padded rails up bilaterally rails up bilaterally. Will continue to monitor closely.
--- NOTE | 2017-10-25 22:59 | NUR ---
PRN ATIVAN 2MG 2 TAB PO ADMINISTRATED FOR CIWA 14 ORDERED.
[2017-10-25] MEDS ORDERED: TRAZ-147 PO (23:40)
[2017-10-25] MEDS ORDERED: HYDR50CA PO (23:40)
[2017-10-25] MEDS ORDERED: ONDA8TAB9 SL (23:40)
[2017-10-25] MEDS ORDERED: GABA-534 PO (23:40)
--- NOTE | 2017-10-25 23:59 | NUR ---
RE-ASSESSMENT Patient is sleeping. Respirations even and unlabored. RR:15. PRN Ativan 2 mg 2 tab PO was effective. All needs met. Safety measures on place. Call light within reach, bed in lowest position and locked, padded rails up bilaterally rails up bilaterally. Will continue to monitor closely.
[2017-10-26] VITALS: BP 126/84
--- NOTE | 2017-10-26 00:50 | NUR ---
PRN SUBUTEX 4 MG 2 TAB SL ADMINISTRATED FOR CIWA 12 ORDERED.
--- NOTE | 2017-10-26 01:02 | NUR ---
PRN ATIVAN 1 MG 1TAB PO ADMINISTRATED FOR CIWA 12 ORDERED.
--- NOTE | 2017-10-26 01:50 | NUR ---
RE-ASSESSMENT Patient is sleeping. Respirations even and unlabored. RR:16. PRN Subutex SL was effective. All needs met. Safety measures on place. Call light within reach, bed in lowest position and locked, padded rails up bilaterally rails up bilaterally. Will continue to monitor closely.
--- NOTE | 2017-10-26 02:02 | NUR ---
RE-ASSESSMENT Patient is sleeping. Respirations even and unlabored. RR:16. PRN Ativan 1 mg 1 tab PO was effective. All needs met. Safety measures on place. Call light within reach, bed in lowest position and locked, padded rails up bilaterally rails up bilaterally. Will continue to monitor closely.
[2017-10-26 04:00] VITALS: BP 101/58
--- NOTE | 2017-10-26 07:21 | NUR ---
END OF SHIFT NOTE: Patient is a 22 year old male admitted on 10/25/2017 for medically supervised withdrawal from Benzodiazepines and Opioid. Patient reports Allergy to Naloxone. Patient is on Full Code, Regular Diet, Fall and Seizures Precautions. Patient reports Seizures History. Past Medical History: Anxiety, Depression, History of Seizures ("07/2017"). Last COWS 9, CIWA 7. The patient presented with: anxiety, agitation, nervousness, tremors, sweating, headache, restless legs, insomnia and fatigue. Patient denies SI/HI. Patient reports substances use: Xanax (Alprazolam) PO 12 mg every day during last month. Last dose taken on 10/25/2017@0800". "Heroin smoking 4 grams every day during last month. Last dose taken on 10/25/2017@0800". Patient reports "smoking 20 cigarettes every day since 2002". Written smoking cessation education provided. Patient verbalized understanding. Patient reports was recently in "[facility] for 2 days". MRSA from nares collected and sent to lab as ordered. Patient denies current SI/HI. . Patient denies SI/HI. Last COWS 5, CIWA 3 @0400. During my shift presented with anxiety, agitation, nervousness, generalized body aches, restlessness, and tremors that can be felt. Last VS @0400: T: 97.9, HR:70, RR 16, RA O2SAT 99%, BP: 102/57, pain level: '0/10". Respirations unlabored and even. Patient denies SOB and chest pain. " Skin is intact, warm and dry to touch. PRN Benadryl 50 mg 1 capsule PO administrated @2050, PRN Ativan 2 mg 2 tab PO administrated @2258, PRN Subutex 4 mg 2 tab SL administrated @0050, PRN Ativan 1 mg 1 tab PO administrated @0102 were effective. Encourage fluids as tolerated. Encourage to attend activities groups. Patient slept 5 hours, intake 850 ml, voided x2. All needs met. Safety measures on place. Call light within reach, bed in lowest position and locked, padded rails up bilaterally.
--- NOTE | 2017-10-26 07:25 | NUR ---
Start Of Shift Report received. Patient is a 22 year old male admitted on 10/25/2017 for withdrawal from Benzodiazepines and Opioid. Patient reports Allergy to Naloxone. Patient is on Full Code, Regular Diet, Fall and Seizures Precautions. Patient reports Seizures History. PMH: Anxiety, Depression, History of Seizures ("07/2017"). Pts last COWS 9, CIWA 7. Pt is placed on a 5 day Ativan and a 5 day Subutex taper. Pt encouraged to drink more fluids to help facilitate with the detox process. Pt received PRN Ativan 2 mg Ativan 1mg Subutex 4mg and Benadryl, all PRN medications effective per overnight stocker nurse. Pt slept a total of 5 hours last night, all safety precautions in place call light within reach bed in lowest locked position will continue to monitor and provide care.
[2017-10-26 08:00] VITALS: BP 99/58
[2017-10-26] MEDS ORDERED: TUBERCULIN,PURIF.PROT.DERIV. 5 TU/0.1 ML TEST ID ONE (09:00)
[2017-10-26] MEDS: BUPRENORPHINE HCL 2 MG TAB.SUBL SL SCH ×4 (09:02→20:04)
[2017-10-26] MEDS: LORAZEPAM 1 MG TABLET PO SCH ×4 (09:02→20:04)
[2017-10-26] MEDS: GABAPENTIN 300 MG CAPSULE PO SCH ×4 (09:04→20:03)
[2017-10-26 12:00] VITALS: BP 109/66
[2017-10-26 13:06] LABS: BASOPHILS % (AUTO) 0.6 % (0.0-2.0); EOSINOPHILS # (AUTO) 0.3 K/uL (0.0-0.7); HEMATOCRIT 43.6 % (36.7-47.1); HEMOGLOBIN 14.9 g/dL (12.5-16.3); LYMPHOCYTES # (AUTO) 1.5 K/uL (20.0-40.0); LYMPHOCYTES % (AUTO) 27.2 % (20.5-51.5); MEAN CORPUSCULAR HEMOGLOBIN 29.9 uug (23.8-33.4); MEAN CORPUSCULAR HGB CONC 34 g/dL (32.5-36.3); MEAN CORPUSCULAR VOLUME 87.4 fL (73.0-96.2); MONOCYTES # (AUTO) 0.7 K/uL (2.0-10.0); MONOCYTES % (AUTO) 12.3 % (0.0-11.0); NEUTROPHILS # (AUTO) 3.1 K/uL (1.8-8.9); NEUTROPHILS % (AUTO) 54.9 % (38.5-71.5); PLATELET COUNT (AUTO) 206 K/uL (152-348); RED BLOOD CELL COUNT(AUTO) 4.99 MIL/uL (4.06-5.63); WHITE BLOOD COUNT (AUTO) 5.6 K/uL (3.6-10.2)
[2017-10-26 13:15] LABS: ALANINE AMINOTRANSFERASE 37 U/L (16-63); ALKALINE PHOSPHATASE 57 U/L (50-136); ASPARTATE AMINOTRANSFERASE 27 U/L (15-37); BILIRUBIN,TOTAL 0.3 mg/dL (0.2-1.0); CARBON DIOXIDE 31 mmol/L (21-32); CHLORIDE 100 mmol/L (98-107); GLUCOSE 103 mg/dL (74-106); MAGNESIUM 1.9 mg/dL (1.8-2.4); POTASSIUM 4.3 mmol/L (3.5-5.1); TOTAL PROTEIN, SERUM 6.9 g/dL (6.4-8.2); UREA NITROGEN, BLOOD 14 mg/dL (7-18)
[2017-10-26] MEDS ORDERED: HYDROXYZINE PAMOATE 25 MG CAPSULE PO PRN (13:15)
[2017-10-26 13:16] LABS: ETHANOL < 3 MG/DL (0-0)
[2017-10-26] MEDS: HYDROXYZINE PAMOATE 25 MG CAPSULE PO PRN (14:32)
[2017-10-26] MEDS ORDERED: LORAZEPAM 1 MG TABLET PO ONE (14:45)
[2017-10-26] MEDS ORDERED: BUPRENORPHINE HCL 2 MG TAB.SUBL SL ONE (14:45)
[2017-10-26 16:00] VITALS: BP 118/77
--- NOTE | 2017-10-26 18:50 | NUR ---
End Of Shift Report given to hourly shift manager nurse. Patient is a 22 year old male admitted on 10/25/2017 for withdrawal from Benzodiazepines and Opioid. Patient reports Allergy to Naloxone. Patient is on Full Code, Regular Diet, Fall and Seizures Precautions. Pts VS monitored closely q 4 hours. Withdrawal symptoms were closely monitored. Initial COWS 5 CIWA 3. Patient encouraged adequate PO fluid intake as tolerated. Patient presented with tremors and anxiety during the day. Last COWS 7 CIWA 5. Per patient, Subutex and Ativan have been helping him with his withdrawal symptoms. Pt ate all of his meals. Pt received onetime orders of Ativan 2mg and Subutex 4mg No PRN medications were given, Pt is in stable condition. Pt encouraged to drink more fluids to help facilitate with detox process. Patient encouraged to attend group therapies/sessions to learn new coping skills to recent relapse, patient denies SI/HI. Participated in group and therapy sessions. All needs met and attended
--- NOTE | 2017-10-26 18:50 | NUR ---
START OF SHIFT NOTE: Endorsed patient is a 22 year old male admitted for medically supervised withdrawal from Benzodiazepines and Opioid. Patient reports Allergy to Naloxone. Patient is on Full Code, Regular Diet, Fall and Seizures Precautions. Past Medical History: Anxiety, Depression, History of Seizures ("07/2017"). Patient is on his room alert and oriented x4 with stable gait. COWS 11, CIWA 9. Patient c/o increased anxiety, agitation, nervousness, nasal stuff, body aches, tremors, sweating, headache, restless legs, insomnia and fatigue. Patient denies SI/HI. VS WNL. Respirations unlabored and even. Patient denies cough, SOB and chest pain. Skin is intact, warm and dry to touch. No PRN medications given during day shift. Patient attending activities groups during day shift per day shift nurse report. Encourage fluids as tolerated. All needs met. Safety measures in place: call light within reach, bed is locked and lowest positions, padded bed rails up x2. Patient endorsed by day shift nurse. Report received. Will continue to monitor closely.
[2017-10-26] MEDS: DOCOSANOL 2 GM CREAM TP PRN (19:54)
[2017-10-26 20:00] VITALS: BP 123/80
[2017-10-26] MEDS: TRAZODONE 100 MG TABLET PO SCH (20:03)
[2017-10-26] MEDS: CLONIDINE HCL 0.1 MG TABLET PO PRN (22:24)
--- NOTE | 2017-10-26 22:24 | NUR ---
PRN CLONIDINE 0.1 MG 1 TAB PO ADMINISTRATION Patient c/o increased anxiety and asked aid. COWS 9, CIWA7. Patient c/o anxiety, agitation, nervousness, tremors, that can be felt, sweating, nasal stuffy, and restlessness. VS: T 98.2, BP 117/60, HR 104, RA O2SAT 96%, RR 18, pain level "0/10". PRN Clonidine 0.1 mg 1 tab. PO administrated with full glass of water as ordered. Patient tolerated well. All needs met. Safety measures on place. Call light within reach, bed in lowest position and locked, padded rails up bilaterally rails up bilaterally. Will continue to monitor closely.
--- NOTE | 2017-10-26 23:24 | NUR ---
RE-ASSESSMENT Patient is sleeping. Respirations even and unlabored. RR: 16. PRN Clonidine 0.1 mg 1 tab. PO administrated @2224 was effective. All needs met. Safety measures on place. Call light within reach, bed in lowest position and locked, padded rails up bilaterally rails up bilaterally. Will continue to monitor closely.
[2017-10-27] VITALS: BP 118/63
[2017-10-27 04:00] VITALS: BP 108/62
--- NOTE | 2017-10-27 06:51 | NUR ---
END OF SHIFT NOTE: Patient endorsed to day shift nurse is a 22 year old male admitted on 10/25/2017 for medically supervised withdrawal from Benzodiazepines and Opioid. Patient reports Allergy to Naloxone. Patient is on Full Code, Regular Diet, Fall and Seizures Precautions. PMH: Anxiety, Depression, History of Seizures ("07/2017). Last COWS 6, CIWA 3 @0400. During my shift patient presented with following signs of withdrawal : anxiety, agitation, nervousness, restlessness, tremors, nasal stuff, sweating, headache, restless legs, insomnia and fatigue. Patient denies SI/HI. Last VS @0400: T: 97.9, HR:78, RR 17, RA O2SAT 98%, BP: 108/62, pain level: 0/10. Respirations unlabored and even. Patient denies cough, SOB and chest pain. Skin is intact, warm and dry to touch. PRN Clonidine 0.1 mg 1 tab PO administrated @2224 was effective. Patient slept 5 hours, intake 2,437 ml, voided x3, stool x1. Encourage fluids as tolerated. Encourage to attend activities groups All needs met. Safety measures on place. Call light within reach, bed in lowest position and locked, padded rails up bilaterally. Patient endorsed by day shift nurse. Report given.
--- NOTE | 2017-10-27 07:29 | NUR ---
Start of Shift Notes: Received patient in his room. Alert and verbally responsive. Oriented x 4 Able to make his needs known. Respirations even and unlabored. No SOB noted. Skin warm and dry to touch. Abdomen soft and non-distended with (+) BS in all 4 quadrants. No complains of N/V/D or abdominal discomfort noted. Bladder non-distended. Voids independently. Ambulatory ad yaima with steady gait. Patient is a 22 year old male admitted for ETOH and BZO dependence who was placed on a 5-day Ativan and 5-day Subutex taper as ordered. No adverse reactions noted. NKA. FULL CODE. Regular diet. On fall and seizure precautions. Educated patient on his current plan of care for the day and his medication regimen. Encouraged oral fluid intake and encouraged group participation to learn new skills to prevent relapse. Will continue to monitor.
[2017-10-27 08:00] VITALS: BP 106/57
[2017-10-27] MEDS ORDERED: LORAZEPAM 1 MG TABLET PO SCH (09:00)
[2017-10-27] MEDS: BUPRENORPHINE HCL 2 MG TAB.SUBL SL SCH ×3 (09:16→20:52)
[2017-10-27] MEDS: GABAPENTIN 300 MG CAPSULE PO SCH ×4 (09:16→20:52)
[2017-10-27] MEDS: DOCOSANOL 2 GM CREAM TP PRN (09:26)
--- NOTE | 2017-10-27 09:26 | NUR ---
Topical Abreva provided Patient requested Abreva for cold sore prevention. Given as ordered.
[2017-10-27] MEDS ORDERED: LORAZEPAM 1 MG TABLET PO PRN ×2 (11:45)
[2017-10-27 12:00] VITALS: BP 131/70
[2017-10-27 12:08] LABS: HEPATITIS B SURFACE AG Negative (Negative)
[2017-10-27] MEDS: PHENOBARBITAL 60 MG TABLET PO SCH ×3 (12:09→20:54)
--- NOTE | 2017-10-27 12:26 | NUR ---
Therapist prompted client to come into group. client agreed to attend group today.
--- NOTE | 2017-10-27 13:18 | NUR ---
Behavior: Patient noted to speak to other staff members rudely. Attempting to get patients to take more medications. Speaking to other patients on how to get more medications. Patient was redirected and consulted on complying with meds and unit's policy. Currently attempting to get more medications at this time and is asking for more Phenobarbital. Education provided. Will continue to monitor.
[2017-10-27 16:00] VITALS: BP 122/77
--- NOTE | 2017-10-27 18:47 | NUR ---
Behavior: Patient was noted to stand around the nurses station and listening to conversations nurse have on the phone. Patient was told that in a calm and professional manner that he cannot linger around the nurses station due to HIPPA rules. Patient stated "Who gives a crap!!" Patient was then told to go back to his room while waiting for meds. But patient still continues to walk around the nurse's station and talking to other clients about medication. Educated patient on the risk of being placed in room restriction. Patient stated "Yea, yea whatever." Will continue to monitor.
--- NOTE | 2017-10-27 18:50 | NUR ---
START OF SHIFT NOTE: Endorsed patient is a 22 year old male admitted for medically supervised withdrawal from Benzodiazepines and Opioid. Patient continue 5 day Phenobarbital taper which tolerated well without ASE. Patient reports Allergy to Naloxone. Patient is on Full Code, Regular Diet, Fall and Seizures Precautions. Past Medical History: Anxiety, Depression, History of Seizures ("07/2017"). Patient is alert and oriented x4 with steady gait. Patient is cooperative. Speech is soft and clear. COWS 5, CIWA 7. Patient c/o anxiety, agitation, nervousness, tremors, sweating, headache, restless legs, insomnia and fatigue. Patient denies SI/HI. VS WNL. Respirations unlabored and even. Patient denies cough, SOB and chest pain. Skin is intact, warm and dry to touch. Patient attending activities groups during day shift per day shift nurse report. Encourage fluids as tolerated. All needs met. Safety measures in place: call light within reach, bed is locked and lowest positions, padded bedrails up x2. Patient endorsed by day shift nurse. Report received. Will continue to monitor closely.
--- NOTE | 2017-10-27 18:50 | NUR ---
End of Shift Notes: Patient's taper switched from 5-day Ativan taper to Phenobarbital taper as ordered but also continues to be on 5-day Subutex taper. No adverse reactions noted. VS monitored closely. No significant abnormalities noted. Withdrawal symptoms closely monitored. Initial COWS 8/CIWA 7, patient presented with anxiety, agitation, tremors, myalgia, chills, hot flashes. Last COWA 6/CIWA7. Per patient, Phenobarbital and Subutex has been effective in reducing patient's withdrawal symptoms. Patient continues to present with behavioral issues during the day, becomes rude to the staff at times. Encouraged compliance and encouraged good behavior. Dr Dubon is aware. Unable to participate in group and activities due to his withdrawal symptoms. All needs met and attended. Will continue to monitor closely.
[2017-10-27 20:00] VITALS: BP 120/60
[2017-10-27] MEDS: CLONIDINE HCL 0.1 MG TABLET PO SCH (20:53)
[2017-10-27] MEDS: TRAZODONE 100 MG TABLET PO SCH (20:53)
[2017-10-28] VITALS: BP 130/58
[2017-10-28 04:00] VITALS: BP 99/63
--- NOTE | 2017-10-28 06:41 | NUR ---
END OF SHIFT NOTE: Patient endorsed to day shift nurse is a 22 year old male admitted on 10/25/2017 for medically supervised withdrawal from Benzodiazepines and Opioid. Patient reports Allergy to Naloxone. Patient is on Full Code, Regular Diet, Fall and Seizures Precautions. PMH: Anxiety, Depression, History of Seizures ("07/2017). Last COWS 5, CIWA 4 @0400. Patient presented with following signs of withdrawal : anxiety, agitation, nervousness, restlessness, tremors, nasal stuff, sweating, headache, restlessness, insomnia and fatigue. Patient denies SI/HI. Last VS @0400: T: 97.9, HR:82, RR 18, RA O2SAT 99%, BP: 99/63, pain level: 0/10. Respirations unlabored and even. Patient denies cough, SOB and chest pain. Skin is intact, warm and dry to touch. Patient denies SI/HI. No PRN administrated last night time babysitter. Patient slept 8 hours, intake 850 ml, voided x2. Encouraged fluids intake as tolerated. Encouraged to attend groups activities. All needs met. Safety measures on place. Call light within reach, bed in lowest position and locked, bed rails up bilaterally. Patient endorsed to day shift nurse. Report given.
[2017-10-28 08:00] VITALS: BP 110/64
--- NOTE | 2017-10-28 08:00 | NUR ---
START OF SHIFT NOTE Received report from night nurse, 22 year old male admitted for Benzo and Opioid. Patient continue 5 day Phenobarbital/ Subutex taper tolerating well. Per endorsement pt did not receive any PRN, slept for 8 hours, last CIWA-4, COWS-5. Patient received awake, alert and oriented x4. Patient was educated regarding plan of care for the day and medication regimen. Safety measures in place. call light with in reach. Will continue to monitor.
[2017-10-28] MEDS: PHENOBARBITAL 60 MG TABLET PO SCH ×3 (08:43→20:06)
[2017-10-28] MEDS: GABAPENTIN 300 MG CAPSULE PO SCH ×3 (08:43→20:06)
[2017-10-28] MEDS: CLONIDINE HCL 0.1 MG TABLET PO SCH ×2 (08:46→20:08)
[2017-10-28] MEDS ORDERED: LORAZEPAM 1 MG TABLET PO SCH (09:00)
[2017-10-28] MEDS ORDERED: DIVALPROEX 250 MG TABLET.DR PO SCH (09:00)
[2017-10-28] MEDS ORDERED: BUPRENORPHINE HCL 2 MG TAB.SUBL SL SCH (09:00)
--- NOTE | 2017-10-28 09:00 | NUR ---
REFUSED MED Patient refused his scheduled morning Depakote offered x3 risk and benefits explained. Patient verbalized understanding. notified.
[2017-10-28 12:00] VITALS: BP 98/55
[2017-10-28] MEDS: BUPRENORPHINE HCL 2 MG TAB.SUBL SL SCH ×2 (14:18→20:08)
--- NOTE | 2017-10-28 14:20 | NUR ---
PRN MOTRIN Patient was complaining of headache 5/10, PRN Motrin 600mg Po 1 tab given as ordered. Will cont to monitor and reassess the pt.
--- NOTE | 2017-10-28 15:20 | NUR ---
MOTRIN REASSESSMENT Patient stated medication was effective headache decreased to 1/10.
[2017-10-28 16:00] VITALS: BP 128/70
--- NOTE | 2017-10-28 19:15 | NUR ---
END OF SHIFT NOTE Patient cont on 5 days Phenobarbital/5 days Subutex taper tolerating well. Patient received PRN Motrin for headache noted to be effective. Vital signs WNL. Patient compliant with treatment and medications. Last CIWA score noted5 and COWS score noted 4 at 1600. All safety measures in place. Patient endorse to night nurse in stable condition.
--- NOTE | 2017-10-28 19:30 | NUR ---
START OF SHIFT NOTE Received a 22 year old male admitted on 10/25/2017 for medically supervised withdrawal from Benzodiazepines and Opioid. Patient reports allergy to Naloxone. Patient is on Full Code, Regular Diet, Fall and Seizures Precautions. Past Medical History: Anxiety, Depression, History of Seizures ("07/2017"). During the rounds at 1930, px complained of severe anxiety, flushed and chills. Respirations are unlabored and even. Encourage fluids as tolerated. Safety measures in place: call light within reach, bed is locked and lowest positions, padded bed rails up x2. We'll continue to monitor.
[2017-10-28 20:00] VITALS: BP 143/78
[2017-10-28] MEDS: METHOCARBAMOL 750 MG TABLET PO PRN (20:07)
[2017-10-28] MEDS: TRAZODONE 100 MG TABLET PO SCH (20:07)
--- NOTE | 2017-10-28 20:07 | NUR ---
PRN Robaxin Px complained of generalized body aches of 7/10. Robaxin 750 mg/tab, 1 tab given PO as PRN med. We'll continue to monitor.
--- NOTE | 2017-10-28 21:10 | NUR ---
Reassessment of Pain Px verbalized that body ache decreased from 7/10 to 4/10. We'll continue to monitor.
[2017-10-29] VITALS: BP 109/60
[2017-10-29 04:00] VITALS: BP 110/59
--- NOTE | 2017-10-29 04:00 | NUR ---
COWS and CIWA deferred COWS and CIWA deferred at 0000 and 0400 due to the px is asleep, to assess if the px is awake per doctor's order. We'll continue to monitor.
--- NOTE | 2017-10-29 07:22 | NUR ---
END OF SHIFT NOTE 22 year old male admitted on 10/25/2017 for medically supervised withdrawal from Benzodiazepines and Opioid. Patient reports Allergy to Naloxone. Patient is on Full Code, Regular Diet, Fall and Seizures Precautions. Past Medical History: Anxiety, Depression, History of Seizures ("07/2017"). Patient is alert and oriented x4 with steady gait. During the shift, px complained of severe anxiety, flushed/chills and generalized body aches of 7/10. Px verbalized that body ache decreased from 7/10 to 4/10. Respirations are unlabored and even. Encourage fluids as tolerated. Oral intake of 1 L, voided 3x, BM 1x. Slept for 6 hours. Safety measures in place: call light within reach, bed is locked and lowest positions, padded bed rails up x2. We'll continue to monitor.
--- NOTE | 2017-10-29 07:41 | NUR ---
BEGINNING OF SHIFT Patient endorsement report from shift manager nurse, all pertinent information discussed. Per shift manager patient slept for 6 hours, last cow score of: 5 , last ciwa score of: 5. Patient continues on modified Subutex and modified Phenobarbital taper as ordered. Patient received awake, alert and oriented x4. Educated regarding plan of care for the day and medication regimen. Patients fall and seizure precautions are in place. call light kept with in reach. safety measures in place. will continue to monitor closely.
[2017-10-29 08:34] VITALS: BP 96/66
[2017-10-29] MEDS: GABAPENTIN 300 MG CAPSULE PO SCH ×3 (08:36→20:08)
[2017-10-29] MEDS: PHENOBARBITAL 60 MG TABLET PO SCH ×3 (08:36→20:09)
[2017-10-29] MEDS: BUPRENORPHINE HCL 2 MG TAB.SUBL SL SCH ×3 (08:37→20:10)
[2017-10-29] MEDS: CLONIDINE HCL 0.1 MG TABLET PO SCH ×3 (08:39→20:09)
[2017-10-29] MEDS ORDERED: LORAZEPAM 1 MG TABLET PO SCH (09:00)
[2017-10-29] MEDS: OSELTAMIVIR PHOSPHATE 75 MG CAPSULE PO SCH (14:15)
[2017-10-29 14:20] VITALS: BP 98/69
--- NOTE | 2017-10-29 15:02 | NUR ---
PRN ZOFRAN Patient c/o nausea. patient with no vomiting noted. administered Zofran 4mg SL as ordered, will continue to monitor.
[2017-10-29 16:00] VITALS: BP 110/65
--- NOTE | 2017-10-29 16:03 | NUR ---
ZOFRAN REASSESSMENT Patient reports medication effective, feels less nauseous. will continue to monitor.
--- NOTE | 2017-10-29 16:03 | NUR ---
ENDORSEMENT Pt endorsed to me by nurse. All information received. Pt received in room watching television. No distress noted at this time.
--- NOTE | 2017-10-29 16:03 | NUR ---
ENDORSED PATIENT Patient endorsed to staff nurse, all pertinent information discussed. patient currently alert and oriented x4, vital signs WNL. last cow: 5 last ciwa 4. Administered Zofran 4mg SL as ordered for nausea, medication was effective.
[2017-10-29] MEDS: HYDROXYZINE PAMOATE 25 MG CAPSULE PO PRN (17:38)
[2017-10-29] MEDS: METHOCARBAMOL 750 MG TABLET PO PRN (17:38)
--- NOTE | 2017-10-29 17:39 | NUR ---
PRN Pt states feels anxious. Vistaril po prn per MD order given and tolerated well.
--- NOTE | 2017-10-29 17:39 | NUR ---
NSG ENTRY Pt states feels anxious and restless. Catapres po prn per MD offered, but pt refused. Pt stated "I don't want to take clonidine".
--- NOTE | 2017-10-29 17:40 | NUR ---
PRN Pt states has body aches 6/10. Robaxin po prn per MD order given and tolerated well.
[2017-10-29] MEDS: CLONIDINE HCL 0.1 MG TABLET PO PRN (18:22)
--- NOTE | 2017-10-29 18:23 | NUR ---
PRN Pt states feels anxious. "I'm just thinking of too many things. The more I get sober, this is just what happens." Catapres po prn per MD order given and tolerated well.
--- NOTE | 2017-10-29 18:40 | NUR ---
PAUL MATTHEW Pt observed walking around the unit in the hallways. No c/o body aches at this time.
--- NOTE | 2017-10-29 18:42 | NUR ---
END OF SHIFT Pt 22 y/o male admitted for substance abuse. Pt alert and oriented to name, place, and time. [place]. Skin warm and dry to touch. Respirations even and unlabored. Pt states had periods of anxiety this afternoon. Pt observed mostly in room this afternoon watching television. Pt was seen by MD today. Pt medication compliant and tolerated well. No ASE noted. Bed on lowest position with side rails x2 up for safety. Call light within reach. No distress noted at this time.
--- NOTE | 2017-10-29 19:30 | NUR ---
START OF SHIFT NOTE Received a 22 year old male admitted on 10/25/2017 for medically supervised withdrawal from Benzodiazepines and Opioid. Patient reports allergy to Naloxone. Patient is on Full Code, Regular Diet, Fall and Seizures Precautions. Past Medical History: Anxiety, Depression, History of Seizures ("07/2017"). During the rounds at 1930, px complained of severe anxiety, and flushed/chills. Respirations are unlabored and even. Encourage fluids as tolerated. Safety measures in place: call light within reach, bed is locked and lowest positions, padded bed rails up x2. We'll continue to monitor.
[2017-10-29 20:00] VITALS: BP 118/77
[2017-10-29] MEDS: TRAZODONE 100 MG TABLET PO SCH (20:09)
[2017-10-29] MEDS: DOCOSANOL 2 GM CREAM TP PRN (22:11)
--- NOTE | 2017-10-29 22:11 | NUR ---
PAUL Machuca Px asked to use Abreva cream for his cold sore. Abreva cream applied using cotton applicator. We'll continue to monitor.
[2017-10-30] VITALS: BP 111/69
[2017-10-30 04:00] VITALS: BP 114/74
--- NOTE | 2017-10-30 07:10 | NUR ---
END OF SHIFT NOTE 22 year old male admitted on 10/25/2017 for medically supervised withdrawal from Benzodiazepines and Opioid. Patient reports allergy to Naloxone. Patient is on Full Code, Regular Diet, Fall and Seizures Precautions. Past Medical History: Anxiety, Depression, History of Seizures ("07/2017"). During the shift, px complained of severe anxiety, and flushed/chills. Px asked to use Abreva cream for his cold sore. Abreva cream applied using cotton applicator. Respirations are unlabored and even. Encourage fluids as tolerated. Oral intake of 1,300 ml, voided 3x, BM 1x. Slept for 6 hours. Safety measures in place: call light within reach, bed is locked and lowest positions, padded bed rails up x2. We'll continue to monitor.
[2017-10-30 08:00] VITALS: BP 90/60
--- NOTE | 2017-10-30 08:15 | NUR ---
START OF SHIFT: RECEIVED PT A/O X 4.HE PRESENTS WITH IRRITABLE MOOD AND CONGRUENT AFFECT.PT CONTINUES ON PHENO AND SUBUTEX TAPER TO MANAGE S/S OF W/D. COWS 6 CIWA 4. HE STATES HE IS ATTENDING GROUPS. ENCOURAGED INCREASED FLUIDS TO ASSIST IN FACILITATING DETOX PROCESS. WILL CONTINUE TO MONITOR AND OFFER SUPPORT.
[2017-10-30] MEDS: CLONIDINE HCL 0.1 MG TABLET PO SCH ×3 (09:00→20:29)
[2017-10-30] MEDS: OSELTAMIVIR PHOSPHATE 75 MG CAPSULE PO SCH (09:00)
[2017-10-30] MEDS ORDERED: LORAZEPAM 1 MG TABLET PO SCH ×2 (09:00→15:00)
[2017-10-30] MEDS: GABAPENTIN 300 MG CAPSULE PO SCH ×3 (09:30→20:28)
[2017-10-30] MEDS: PHENOBARBITAL 60 MG TABLET PO SCH ×2 (09:30→20:28)
[2017-10-30] MEDS: BUPRENORPHINE HCL 2 MG TAB.SUBL SL SCH ×2 (09:30→20:28)
[2017-10-30 12:00] VITALS: BP 118/83
[2017-10-30] MEDS ORDERED: OSELTAMIVIR PHOSPHATE 75 MG CAPSULE PO ONE (12:00)
[2017-10-30 16:00] VITALS: BP_SYST 124; BP_SYST 141; BP_DIAS 67; BP_DIAS 79
[2017-10-30] MEDS: HYDROXYZINE PAMOATE 25 MG CAPSULE PO PRN (16:14)
--- NOTE | 2017-10-30 16:15 | NUR ---
PT C/O ANXIETY. PRN VISTARIL GIVEN TO MANAGE S/S OF W/D.
--- NOTE | 2017-10-30 17:15 | NUR ---
PRN VISTARIL MILDLY EFFECTIVE. HE STATES HE FEELS A LITTLE LESS ANXIOUS. WILL CONTINUE TO MONITOR.
[2017-10-30] MEDS ORDERED: OXCARBAZEPINE 150 MG TABLET PO SCH (18:00)
--- NOTE | 2017-10-30 18:20 | NUR ---
END OF SHIFT: PT CONTINUES ON PHENO/SUB. TAPER TO MANAGE S/S OF W/D. LAST COWS 5 CIWA 3. HE C/O ANXIETY THIS AFTERNOON AND VISTARIL PRN GIVEN ORDERED. PT INSISTED BEFORE HE TOOK VISTARIL THAT HE TALK TO THE MD ABOUT TAKING SOMETHING STRONGER FOR HIS ANXIETY. NEW ORDER FOR TRILEPTAL TO START TONIGHT PER MD. HE ATTENDED GROUPS AND INTERACTED WITH PEERS. WILL PASS SHIFT REPORT TO ONCOMING NIGHT NURSE.
[2017-10-30 20:00] VITALS: BP 120/75
--- NOTE | 2017-10-30 20:00 | NUR ---
START OF SHIFT NOTE Pt is a 22 year old male admitted for Benzodiazepines and Opioid dependency.He is allergic to Naloxone; on Full Code status, Regular Diet, Fall and Seizures Precautions. PMH of Anxiety, Depression and Seizures. Pt received in room, complained of severe anxiety and wants to take his medications early.A/O X 4. Respirations are unlabored and even. Encouraged PO fluids as tolerated. Safety measures in place: call light within reach, bed is locked and lowest positions, padded bed rails up x2. We'll continue to monitor
[2017-10-30] MEDS: OXCARBAZEPINE 150 MG TABLET PO SCH (20:27)
[2017-10-30] MEDS: TRAZODONE 100 MG TABLET PO SCH (20:28)
[2017-10-31] VITALS: BP 111/78
--- NOTE | 2017-10-31 04:00 | NUR ---
COWS and CIWA deferred/V/S refused. COWS and CIWA deferred due to the pt being asleep.Pt refused V/S. Will continue to monitor.
--- NOTE | 2017-10-31 06:46 | NUR ---
END OF SHIFT Pt is a 22 year old male admitted for Benzodiazepines and Opioid dependency.He is allergic to Naloxone; on Full Code status, Regular Diet, Fall and Seizures Precautions. PMH of Anxiety, Depression and Seizures. Pt is A/O X 4. Respirations are unlabored and even. No PRN meds given this shift, pt slept 6 hrs, fluid intake was 2306; voided x 3, b/m x 2. Last COWS/CIWA = 3. Encouraged PO fluids as tolerated. Safety measures in place: call light within reach, bed is locked and in lowest positions, padded bed rails up x2. Will continue to monitor.
--- NOTE | 2017-10-31 08:10 | NUR ---
Nursing notes: Received pt in bed sleeping, no distress, continue with phenobarbital and subutex taper cow 3, ciwa 3, will continue same tx.
[2017-10-31 08:41] VITALS: BP 102/49
[2017-10-31] MEDS ORDERED: BUPRENORPHINE HCL 2 MG TAB.SUBL SL SCH (09:00)
[2017-10-31] MEDS ORDERED: PHENOBARBITAL 60 MG TABLET PO SCH (09:00)
[2017-10-31] MEDS: CLONIDINE HCL 0.1 MG TABLET PO SCH ×6 (09:00→21:00)
[2017-10-31] MEDS: GABAPENTIN 300 MG CAPSULE PO SCH ×3 (09:22→20:04)
[2017-10-31] MEDS: OSELTAMIVIR PHOSPHATE 75 MG CAPSULE PO SCH (09:22)
[2017-10-31] MEDS: OXCARBAZEPINE 150 MG TABLET PO SCH ×2 (09:23→20:05)
[2017-10-31] MEDS ORDERED: LORAZEPAM 1 MG TABLET PO ONE (12:00)
[2017-10-31 12:37] VITALS: BP 118/76
--- NOTE | 2017-10-31 12:44 | NUR ---
PT WILL BE LEAVING TOMORROW, ORDERS ATIVAN FOR TODAY EVEN THOUGH PT IS LEAVING TOMORROW , ATIVAN WAS GIVEN PER MD ORDERS, PT ATTENDED TO GROUPS AND HAS BEEN GOING OUT OF HIS ROOM, COMPLIENT WITH MEDS, DENIES ANY N/V, GOOD EYE CONTACT, CAN GET IMPULSIVE,WITH CONGRUENT AFFECT, EPISODES OF ANXIETY AT TIMES, WILL CONTINUE MONITORING BEHAVIOR.
[2017-10-31] MEDS ORDERED: CLON0.1T14 PO (14:27)
[2017-10-31] MEDS ORDERED: TRAZ-147 PO (14:27)
[2017-10-31] MEDS ORDERED: IBUP-1955 PO (14:27)
[2017-10-31] MEDS ORDERED: HYDR-3895 PO (14:27)
[2017-10-31] MEDS ORDERED: DIPH50CA37 PO (14:27)
[2017-10-31] MEDS ORDERED: DICY20TA28 PO (14:27)
[2017-10-31] MEDS ORDERED: GABA-534 PO (14:27)
[2017-10-31] MEDS ORDERED: METH-406 PO (14:27)
[2017-10-31] MEDS ORDERED: OXCA150T5 PO (14:27)
--- NOTE | 2017-10-31 14:40 | NUR ---
Therapist prompted client to come to group today, client agreed to attend.
--- NOTE | 2017-10-31 14:55 | NUR ---
Pt requested to call MD d/t he said Md need to increased his trilectal MD aware.
[2017-10-31 16:00] VITALS: BP 112/72
--- NOTE | 2017-10-31 18:00 | NUR ---
pt at [facility] now, was complient with meds, was on phenobarbital and subutex taper d/t heroin and xanax use, will be dc tomorrow , pt is aware cow 3, and ciwa 3, denies any n/v at this time, can be impulsive with congruent affect, good eye contact, no discomfort at this time.
[2017-10-31 20:00] VITALS: BP 124/71
--- NOTE | 2017-10-31 20:00 | NUR ---
START OF SHIFT NOTE RECEIVED REPORT FROM DAY SHIFT NURSE. PATIENT IS A 22 YEAR OLD MALE ADMITTED FOR OPIATE AND BENZO DEPENDENCE. PATIENT COMPLETED MODIFIED PHENOBARBITAL AND SUBUTEX TAPER. PATIENT IS MEDICALLY CLEARED TO BE DISCHARGE TOMORROW. PATIENT WAS GIVEN ONE TIME ORDER OF ATIVAN PER DR. BRITT. LAST COWS 3 AND CIWA 2. RECEIVED PATIENT ALERT AND ORIENTED X 4. RESPIRATION EVEN AND UNLABORED. PATIENT STATES HES NERVOUS DUE TO LEAVING BUT HES GOOD. DENIES ANY PAIN. NO N/. ON FALL/SEIZURE PRECAUTION. SAFETY MEASURES IN PLACE. CALL LIGHT IN REACH. WILL CONTINUE TO MONITOR
[2017-10-31] MEDS: TRAZODONE 100 MG TABLET PO SCH ×2 (20:06→21:00)
--- NOTE | 2017-10-31 22:00 | NUR ---
REFUSED CLONIDINE AND TRAZADONE PATIENT REFUSED TO TAKE CLONIDINE AND TRAZADONE , EXPLAINED RISKS/BENEFITS BUT STILL REFUSED
--- NOTE | 2017-11-01 | NUR ---
COWS AND CIWA DEFERRED PATIENT SLEEPING. PATIENT REFUSED VS. RESPIRATION EVEN AND UNLABORED. SAFETY MEASURES IN PLACE. CALL LIGHT IN REACH. WILL CONTINUE TO MONITOR
--- NOTE | 2017-11-01 04:00 | NUR ---
COWS AND CIWA DEFERRED PATIENT SLEEPING. PATIENT REFUSED VS. RESPIRATION EVEN AND UNLABORED. SAFETY MEASURES IN PLACE. CALL LIGHT IN REACH. WILL CONTINUE TO MONITOR
--- NOTE | 2017-11-01 07:28 | NUR ---
END OF SHIFT NOTE PATIENT SLEPT 8 HOURS. FLUID INTAKE 2,000 ML. VOIDED X 3. BM X 1. PATIENT COMPLETED MODIFIED PHENOBARBITAL AND SUBUTEX TAPER. PATIENT IS MEDICALLY CLEARED TO BE DISCHARGE TODAY. PATIENT WAS ANXIOUS DUE TO LEAVING BEGINNING OF SHIFT. PATIENT REFUSED TO TAKE HIS CLONIDINE AND TRAZADONE , HE STATES THAT HE DOESN'T NEED IT. EXPLAINED RISKS/BENEFITS BUT STILL REFUSED. PATIENT DID NOT REQUIRE ANY PRN MEDICATION. ON FALL/SEIZURE PRECAUTION. SAFETY MEASURES IN PLACE. CALL LIGHT IN REACH. WILL CONTINUE TO MONITOR
[2017-11-01 08:00] VITALS: BP 103/83
--- NOTE | 2017-11-01 08:05 | NUR ---
START OF SHIFT: RECEIVED PT A/O X 4. HE PRESENTS WITH IRRITABLE MOOD AND CONGRUENT AFFECT. HE STATES HE SLEPT WELL BUT GETS ANGRY ON ASSESSMENT AND STATES HE DOES NOT WANT TO BE QUESTIONED. CUONG 1 COWS 1 WILL CONTINUE WITH DISCHARGE PLANNING ORDERED FOR THIS AM.
[2017-11-01] MEDS: OSELTAMIVIR PHOSPHATE 75 MG CAPSULE PO SCH (08:56)
[2017-11-01] MEDS: OXCARBAZEPINE 150 MG TABLET PO SCH (08:56)
[2017-11-01] MEDS: CLONIDINE HCL 0.1 MG TABLET PO SCH (08:56)
[2017-11-01] MEDS: GABAPENTIN 300 MG CAPSULE PO SCH (08:56)
--- NOTE | 2017-11-01 09:40 | NUR ---
DISCHARGE: PT IS A/O X4. HE DENIES S/I AND H/I. HE STATES HE IS MOTIVATED TO STAY CLEAN AND FEELS ENTHUSIASTIC. BELONGINGS RETURNED. EDUCATED PT ON DISCHARGE INSTRUCTIONS AND MEDICATIONS. BOOK RETAILER ESCORTED PT TO [facility] WHERE HE WAS TRANSPORTED BY [facility] TO [facility] AT 0930.
== END 2017-11-01 09:30 | disposition other institution (70) | DRG 895 ==
LOC: SRC 18:49
PROVIDERS: ADMIT Internal Medicine; ATTEND Internal Medicine
PROC: HZ2ZZZZ Detoxification Services for Substance Abuse Treatment (ICD-10-PCS; principal; 2017-10-25)
PROC: HZ41ZZZ Group Counseling for Substance Abuse Treatment, Behavioral (ICD-10-PCS; 2017-10-27)
DX: F11.23 Opioid dependence with withdrawal (principal); G40.919 Epilepsy, unspecified, intractable, without status epilepticus; I15.9 Secondary hypertension, unspecified; F13.230 Sedative, hypnotic or anxiolytic dependence with withdrawal, uncomplicated; F14.10 Cocaine abuse, uncomplicated; F15.10 Other stimulant abuse, uncomplicated; F17.210 Nicotine dependence, cigarettes, uncomplicated; F41.9 Anxiety disorder, unspecified; Z59.1 Inadequate housing; Z81.1 Family history of alcohol abuse and dependence; Z91.89 Other specified personal risk factors, not elsewhere classified; F39 Unspecified mood [affective] disorder
CPT/HCPCS: 36415; 70030-TC; 80307; 80345; 80346; 80361; 83735; 85025; 86592; 86705; 86803; 87340; 87806; A4663; G0480; J3490; J8499; Q0162; Q0163

== ENCOUNTER 2018-02-01 19:51 | Inpatient (IN) | payer BC, OTHER ==
[~2018-02-01] VITALS: Ht 170.2 cm; Wt 73.9 kg
[~2018-02-01 19:51] MED LIST changes: -DIVA500T54 PO; -HYDR-3026 PO; +METH-406 PO; -ONDA4TAB11 PO; +OXCA150T5 PO
[2018-02-01] MEDS ORDERED: ONDANSETRON ODT 4 MG TAB.RAPDIS SL PRN (22:15)
[2018-02-01] MEDS ORDERED: LORAZEPAM 1 MG TABLET PO PRN ×2 (22:15)
[2018-02-01] MEDS ORDERED: LORAZEPAM 2 MG/1 ML VIAL IM PRN (22:15)
[2018-02-01] MEDS ORDERED: MIRALAX 17 GM POWD.PACK PO PRN (22:15)
[2018-02-01] MEDS ORDERED: ACETAMINOPHEN 325 MG TABLET PO PRN (22:15)
[2018-02-01] MEDS ORDERED: IBUPROFEN 600 MG TABLET PO PRN (22:15)
[2018-02-01] MEDS ORDERED: LOPERAMIDE HCL 2 MG CAPSULE PO PRN ×2 (22:15)
[2018-02-01] MEDS ORDERED: BUPRENORPHINE HCL 2 MG TAB.SUBL SL PRN (22:15)
[2018-02-01] MEDS ORDERED: MAGNESIUM HYDROXIDE 30 ML LIQUID UDC PO PRN (22:15)
[2018-02-01] MEDS ORDERED: ONDANSETRON 4 MG/2 ML VIAL IM PRN (22:15)
[2018-02-01] MEDS ORDERED: MAG HYDROX/AL HYDROX/SIMETH 30 ML LIQUID UDC PO PRN (22:15)
[2018-02-01] MEDS ORDERED: CLONIDINE HCL 0.1 MG TABLET PO PRN (22:15)
[2018-02-01] MEDS ORDERED: diphenhydrAMINE 50 MG CAPSULE PO PRN (22:15)
[2018-02-01] MEDS ORDERED: DICYCLOMINE HCL 20 MG TABLET PO PRN (22:15)
[2018-02-01 22:45] VITALS: BP 133/76
[2018-02-01 23:06] LABS: BASOPHILS % (AUTO) 0.4 % (0.0-2.0); EOSINOPHILS # (AUTO) 0.1 K/uL (0.0-0.7); EOSINOPHILS % (AUTO) 1.2 % (0.0-7.0); HEMATOCRIT 43.9 % (36.7-47.1); HEMOGLOBIN 15.2 g/dL (12.5-16.3); LYMPHOCYTES # (AUTO) 1.6 K/uL (20.0-40.0); LYMPHOCYTES % (AUTO) 20.5 % (20.5-51.5); MEAN CORPUSCULAR HEMOGLOBIN 29.5 uug (23.8-33.4); MEAN CORPUSCULAR HGB CONC 35 g/dL (32.5-36.3); MEAN CORPUSCULAR VOLUME 85.3 fL (73.0-96.2); MONOCYTES # (AUTO) 0.8 K/uL (2.0-10.0); MONOCYTES % (AUTO) 10.5 % (0.0-11.0); NEUTROPHILS # (AUTO) 5.4 K/uL (1.8-8.9); NEUTROPHILS % (AUTO) 67.4 % (38.5-71.5); PLATELET COUNT (AUTO) 254 K/uL (152-348); RED BLOOD CELL COUNT(AUTO) 5.15 MIL/uL (4.06-5.63)
[2018-02-01] MEDS ORDERED: [UNRECOGNIZED DRUG - CODE] (23:36)
[2018-02-01 23:39] LABS: ETHANOL < 3 MG/DL (0-0)
[2018-02-01 23:41] LABS: ALANINE AMINOTRANSFERASE 31 U/L (16-63); ALKALINE PHOSPHATASE 56 U/L (50-136); AMYLASE 69 U/L (25-115); ASPARTATE AMINOTRANSFERASE 17 U/L (15-37); BILIRUBIN,TOTAL 0.4 mg/dL (0.2-1.0); CARBON DIOXIDE 25 mmol/L (21-32); CHLORIDE 105 mmol/L (98-107); CREATININE 1.1 mg/dL (0.6-1.3); GLUCOSE 90 mg/dL (74-106); MAGNESIUM 1.8 mg/dL (1.8-2.4); POTASSIUM 3.2 mmol/L (3.5-5.1); TOTAL PROTEIN, SERUM 7.9 g/dL (6.4-8.2); UREA NITROGEN, BLOOD 9 mg/dL (7-18)
[2018-02-01] MEDS: METHOCARBAMOL 750 MG TABLET PO PRN (23:50)
[2018-02-02 00:01] LABS: *AMPHETAMINE, URINE NEGATIVE (NEGATIVE); *BARBITURATE, URINE POSITIVE (NEGATIVE); *CANNABINOID, URINE NEGATIVE (NEGATIVE); *COCCAINE, URINE POSITIVE (NEGATIVE); *OPIATE, URINE POSITIVE (NEGATIVE); *PHENCYCLIDINE SCREEN,URINE NEGATIVE (NEGATIVE)
[2018-02-02] MEDS ORDERED: POTASSIUM CHLORIDE 20 MEQ TAB.PRT.SR PO ONE ×2 (00:30→09:00)
[2018-02-02 04:00] VITALS: BP 96/50
[2018-02-02 08:00] VITALS: BP 100/72
[2018-02-02] MEDS: THIAMINE HCL 100 MG TABLET PO SCH (08:45)
[2018-02-02] MEDS: FOLIC ACID 1 MG TABLET PO SCH (08:45)
[2018-02-02] MEDS: MULTIVITAMINS,THERAPEUTIC TABLET PO SCH (08:45)
[2018-02-02] MEDS: BUPRENORPHINE HCL 2 MG TAB.SUBL SL SCH ×4 (08:46→20:33)
[2018-02-02] MEDS ORDERED: TUBERCULIN,PURIF.PROT.DERIV. 5 TU/0.1 ML TEST ID ONE (09:00)
[2018-02-02] MEDS ORDERED: LORAZEPAM 1 MG TABLET PO SCH (09:00)
[2018-02-02] MEDS: PHENOBARBITAL 60 MG TABLET PO SCH ×2 (11:36→14:23)
[2018-02-02] MEDS: DIAZEPAM 10 MG TABLET PO PRN ×4 (11:37→19:02)
[2018-02-02 12:00] VITALS: BP 126/79
[2018-02-02] MEDS: METHOCARBAMOL 750 MG TABLET PO PRN (13:02)
[2018-02-02] MEDS: GABAPENTIN 400 MG CAPSULE PO SCH ×2 (14:23→20:32)
[2018-02-02 16:15] VITALS: BP 104/60
[2018-02-02 20:00] VITALS: BP 127/76
[2018-02-02] MEDS: OXCARBAZEPINE 150 MG TABLET PO SCH (20:33)
[2018-02-02] MEDS ORDERED: PHENOBARBITAL 60 MG TABLET PO SCH (21:00)
[2018-02-02] MEDS: TRAZODONE 100 MG TABLET PO SCH (22:47)
[2018-02-03] VITALS: BP 101/60
[2018-02-03 08:00] VITALS: BP 98/60
[2018-02-03] MEDS ORDERED: PHENOBARBITAL 60 MG TABLET PO SCH ×3 (09:00→17:00)
[2018-02-03] MEDS ORDERED: LORAZEPAM 1 MG TABLET PO SCH (09:00)
[2018-02-03 09:08] LABS: HEPATITIS B SURFACE AG Negative (Negative)
[2018-02-03] MEDS: GABAPENTIN 400 MG CAPSULE PO SCH ×4 (09:15→20:30)
[2018-02-03] MEDS: FOLIC ACID 1 MG TABLET PO SCH (09:16)
[2018-02-03] MEDS: OXCARBAZEPINE 150 MG TABLET PO SCH ×2 (09:16→20:30)
[2018-02-03] MEDS: BUPRENORPHINE HCL 2 MG TAB.SUBL SL SCH ×3 (09:16→20:36)
[2018-02-03] MEDS: MULTIVITAMINS,THERAPEUTIC TABLET PO SCH (09:16)
[2018-02-03] MEDS: THIAMINE HCL 100 MG TABLET PO SCH (09:16)
[2018-02-03] MEDS: DIAZEPAM 10 MG TABLET PO PRN ×7 (10:10→22:28)
[2018-02-03] MEDS ORDERED: KETOROLAC TROMETHAMINE 30 MG INJ IM PRN (11:15)
[2018-02-03 12:00] VITALS: BP 122/75
[2018-02-03] MEDS: PHENOBARBITAL 60 MG TABLET PO SCH ×3 (12:14→20:23)
[2018-02-03] MEDS ORDERED: BUPRENORPHINE HCL 2 MG TAB.SUBL SL ONE (13:00)
[2018-02-03 16:00] VITALS: BP 109/63
[2018-02-03 20:00] VITALS: BP 107/55
[2018-02-03] MEDS: BACLOFEN 10 MG TABLET PO SCH (20:23)
[2018-02-03] MEDS: CLONIDINE HCL 0.1 MG TABLET PO SCH ×2 (20:29→21:00)
[2018-02-03] MEDS: TRAZODONE 100 MG TABLET PO SCH (21:00)
[2018-02-04] VITALS: BP 123/68
[2018-02-04 08:00] VITALS: BP_SYST 60
[2018-02-04] MEDS ORDERED: BUPRENORPHINE HCL 2 MG TAB.SUBL SL SCH (09:00)
[2018-02-04] MEDS ORDERED: LORAZEPAM 1 MG TABLET PO SCH (09:00)
[2018-02-04] MEDS ORDERED: HYDROXYZINE PAMOATE 25 MG CAPSULE PO PRN (09:00)
[2018-02-04] MEDS: GABAPENTIN 400 MG CAPSULE PO SCH ×4 (09:14→21:57)
[2018-02-04] MEDS: THIAMINE HCL 100 MG TABLET PO SCH (09:14)
[2018-02-04] MEDS: OXCARBAZEPINE 150 MG TABLET PO SCH (09:14)
[2018-02-04] MEDS: BACLOFEN 10 MG TABLET PO SCH ×3 (09:14→21:53)
[2018-02-04] MEDS: MULTIVITAMINS,THERAPEUTIC TABLET PO SCH (09:14)
[2018-02-04] MEDS: PHENOBARBITAL 60 MG TABLET PO SCH ×3 (09:15→21:55)
[2018-02-04] MEDS: CLONIDINE HCL 0.1 MG TABLET PO SCH ×3 (09:15→21:54)
[2018-02-04] MEDS: FOLIC ACID 1 MG TABLET PO SCH (09:15)
[2018-02-04] MEDS: DIAZEPAM 10 MG TABLET PO PRN (10:38)
[2018-02-04 12:00] VITALS: BP 129/68
[2018-02-04] MEDS: HYDROXYZINE PAMOATE 25 MG CAPSULE PO PRN (12:12)
[2018-02-04] MEDS: BUPRENORPHINE HCL 2 MG TAB.SUBL SL SCH ×2 (14:15→21:57)
[2018-02-04 16:00] VITALS: BP 119/71
[2018-02-04] MEDS: DIAZEPAM 5 MG TABLET PO PRN ×2 (16:09→22:45)
[2018-02-04 20:00] VITALS: BP 98/60
[2018-02-04] MEDS ORDERED: OXCARBAZEPINE 300 MG TABLET PO SCH (21:00)
[2018-02-04] MEDS: TRAZODONE 100 MG TABLET PO SCH (21:58)
[2018-02-05 08:30] VITALS: BP 100/51
[2018-02-05] MEDS ORDERED: PHENOBARBITAL 60 MG TABLET PO SCH ×3 (09:00→21:00)
[2018-02-05] MEDS ORDERED: LORAZEPAM 1 MG TABLET PO SCH (09:00)
[2018-02-05] MEDS ORDERED: OXCARBAZEPINE 150 MG TABLET PO SCH (09:00)
[2018-02-05] MEDS: CLONIDINE HCL 0.1 MG TABLET PO SCH ×2 (09:00→14:23)
[2018-02-05] MEDS: FOLIC ACID 1 MG TABLET PO SCH (09:05)
[2018-02-05] MEDS: GABAPENTIN 400 MG CAPSULE PO SCH ×2 (09:05→12:03)
[2018-02-05] MEDS: BACLOFEN 10 MG TABLET PO SCH (09:05)
[2018-02-05] MEDS: MULTIVITAMINS,THERAPEUTIC TABLET PO SCH (09:06)
[2018-02-05] MEDS: THIAMINE HCL 100 MG TABLET PO SCH (09:06)
[2018-02-05] MEDS: BUPRENORPHINE HCL 2 MG TAB.SUBL SL SCH ×3 (09:07→20:16)
[2018-02-05] MEDS: HYDROXYZINE PAMOATE 25 MG CAPSULE PO PRN (12:03)
[2018-02-05 12:15] VITALS: BP 127/75
[2018-02-05] MEDS ORDERED: DIAZEPAM 5 MG TABLET PO PRN (13:15)
[2018-02-05] MEDS ORDERED: DIAZEPAM 10 MG TABLET PO ONE (13:15)
[2018-02-05] MEDS ORDERED: DIAZEPAM 10 MG TABLET PO PRN (13:15)
[2018-02-05] MEDS: DICYCLOMINE HCL 20 MG TABLET PO SCH ×2 (14:20→20:16)
[2018-02-05] MEDS: BACLOFEN 20 MG TABLET PO SCH ×2 (14:20→20:16)
[2018-02-05 16:00] VITALS: BP 120/66
[2018-02-05] MEDS: GABAPENTIN 300 MG CAPSULE PO SCH ×2 (16:34→20:16)
[2018-02-05] MEDS: DIAZEPAM 10 MG TABLET PO PRN ×2 (18:51→23:29)
[2018-02-05 20:00] VITALS: BP 131/82
[2018-02-05] MEDS: OXCARBAZEPINE 300 MG TABLET PO SCH (20:16)
[2018-02-05] MEDS: TRAZODONE 100 MG TABLET PO SCH (21:00)
[2018-02-05] MEDS: CLONIDINE HCL 0.2 MG TABLET PO SCH (21:00)
[2018-02-06] VITALS: BP 124/76
[2018-02-06 08:00] VITALS: BP 103/60
[2018-02-06] MEDS ORDERED: PHENOBARBITAL 60 MG TABLET PO SCH (09:00)
[2018-02-06] MEDS ORDERED: BUPRENORPHINE HCL 2 MG TAB.SUBL SL SCH (09:00)
[2018-02-06] MEDS ORDERED: LORAZEPAM 1 MG TABLET PO SCH (09:00)
[2018-02-06] MEDS: DIAZEPAM 10 MG TABLET PO PRN ×2 (09:33→22:42)
[2018-02-06] MEDS: OXCARBAZEPINE 300 MG TABLET PO SCH ×2 (09:33→21:35)
[2018-02-06] MEDS: DICYCLOMINE HCL 20 MG TABLET PO SCH ×3 (09:33→21:35)
[2018-02-06] MEDS: FOLIC ACID 1 MG TABLET PO SCH (09:33)
[2018-02-06] MEDS: GABAPENTIN 300 MG CAPSULE PO SCH ×4 (09:33→21:35)
[2018-02-06] MEDS: MULTIVITAMINS,THERAPEUTIC TABLET PO SCH (09:33)
[2018-02-06] MEDS: BACLOFEN 20 MG TABLET PO SCH ×3 (09:34→21:35)
[2018-02-06] MEDS: THIAMINE HCL 100 MG TABLET PO SCH (09:34)
[2018-02-06] MEDS: CLONIDINE HCL 0.1 MG TABLET PO SCH ×2 (09:34→14:51)
[2018-02-06] MEDS: PHENOBARBITAL 60 MG TABLET PO SCH ×3 (09:34→21:36)
[2018-02-06 12:00] VITALS: BP 124/72
[2018-02-06] MEDS: BUPRENORPHINE HCL 2 MG TAB.SUBL SL SCH ×2 (12:04→21:35)
[2018-02-06 16:00] VITALS: BP 127/81
[2018-02-06] MEDS: HYDROXYZINE PAMOATE 25 MG CAPSULE PO PRN (16:54)
[2018-02-06 20:00] VITALS: BP 107/53
[2018-02-06] MEDS: CLONIDINE HCL 0.2 MG TABLET PO SCH (21:00)
[2018-02-06] MEDS: TRAZODONE 100 MG TABLET PO SCH (21:00)
[2018-02-07] VITALS: BP 112/61
[2018-02-07 08:00] VITALS: BP 124/64
[2018-02-07] MEDS: MULTIVITAMINS,THERAPEUTIC TABLET PO SCH (08:05)
[2018-02-07] MEDS: DICYCLOMINE HCL 20 MG TABLET PO SCH (08:05)
[2018-02-07] MEDS: DIAZEPAM 10 MG TABLET PO PRN (08:05)
[2018-02-07] MEDS: FOLIC ACID 1 MG TABLET PO SCH (08:05)
[2018-02-07] MEDS: OXCARBAZEPINE 300 MG TABLET PO SCH (08:05)
[2018-02-07] MEDS: THIAMINE HCL 100 MG TABLET PO SCH (08:05)
[2018-02-07 08:06] VITALS: BP 124/80
[2018-02-07] MEDS: GABAPENTIN 300 MG CAPSULE PO SCH (08:06)
[2018-02-07] MEDS: CLONIDINE HCL 0.1 MG TABLET PO SCH (08:06)
[2018-02-07] MEDS: BACLOFEN 20 MG TABLET PO SCH (08:06)
[2018-02-07] MEDS ORDERED: BUPRENORPHINE HCL 2 MG TAB.SUBL SL SCH ×2 (09:00)
[2018-02-07] MEDS ORDERED: PHENOBARBITAL 60 MG TABLET PO SCH ×2 (09:00)
[2018-02-08] MEDS ORDERED: PHENOBARBITAL 60 MG TABLET PO SCH (09:00)
[2018-02-08] MEDS ORDERED: BUPRENORPHINE HCL 2 MG TAB.SUBL SL SCH (09:00)
== END 2018-02-07 11:48 | disposition left against medical advice (07) | DRG 894 ==
LOC: SRC 22:01
PROVIDERS: ADMIT Internal Medicine; ATTEND Internal Medicine
PROC: HZ2ZZZZ Detoxification Services for Substance Abuse Treatment (ICD-10-PCS; principal; 2018-02-01)
PROC: HZ31ZZZ Individual Counseling for Substance Abuse Treatment, Behavioral (ICD-10-PCS; 2018-02-02)
PROC: HZ41ZZZ Group Counseling for Substance Abuse Treatment, Behavioral (ICD-10-PCS; 2018-02-02)
DX: F10.232 Alcohol dependence with withdrawal with perceptual disturbance (principal); G40.919 Epilepsy, unspecified, intractable, without status epilepticus; F11.23 Opioid dependence with withdrawal; F13.232 Sedative, hypnotic or anxiolytic dependence with withdrawal with perceptual disturbance; Y90.0 Blood alcohol level of less than 20 mg/100 ml; Z81.1 Family history of alcohol abuse and dependence; Z59.1 Inadequate housing; Z59.0 Homelessness; G47.00 Insomnia, unspecified; F41.9 Anxiety disorder, unspecified; F17.210 Nicotine dependence, cigarettes, uncomplicated; F39 Unspecified mood [affective] disorder; F14.10 Cocaine abuse, uncomplicated; Z91.89 Other specified personal risk factors, not elsewhere classified; F91.9 Conduct disorder, unspecified; E87.6 Hypokalemia
CPT/HCPCS: 36415; 70030-TC; 80307; 83735; 85025; 86580; 86592; 86705; 86803; 87340; 87806; 94640; A4663; G0480; J8499; Q0162; Q0163